=== PATIENT | female | born 1960 | race Caucasian/White ===

== ENCOUNTER 2018-11-22 11:34 | Emergency (ER) | payer SELFPAY ==
[2018-11-22 12:00] VITALS: BP 133/63
--- NOTE | 2018-11-22 12:09 | UC ---
Abdominal Pain Female HPI - HPI Summary HPI Summary: Patient presents to urgent care. Patient states she was directed here by her primary care for an ultrasound. Patient states Oneil 12 days ago was sitting in a chair had a forceful cough and felt sudden pain in her left lower abdomen. Patient states a few days later she was picking up a 75 pound propane tank when she felt sudden sharp pain. Patient states since this time she's had progressive discomfort in her left lower abdomen. Patient denies nausea vomiting. Patient states her stools have been a smaller caliber. Patient was taking Motrin and Aleve but this causes some nausea so she stopped taking it. Patient states she's been having fevers with a MAXIMUM TEMPERATURE of 102.4 last night. No fevers. No antipyretics today. Patient states she continues to have discomfort so her doctor, who is not the office, recommended she come here for an ultrasound to evaluate for hernia. Patient denies any dysuria or hematuria. No back pain. Patient is not on anticoagulation. Patient's medications reviewed this visit - History of Current Complaint Chief Complaint: UCAbdominalPain Stated Complaint: ABD PAIN Time Seen by Provider: 11/22/18 11:51 Hx Obtained From: Patient Hx Last Menstrual Period: menapause ?: No Onset/Duration: Gradual Onset Severity Initially: Moderate Severity Currently: Moderate Pain Intensity: 8 Pain Scale Used: 0-10 Numeric Location: Discrete At: LLQ Radiates: No Character: Other - pressure Aggravating Factor(s): Movement, Deep Breaths, Other: - palpation Alleviating Factor(s): Other: - motrin Associated Signs and Symptoms: Positive: Other: - smaller caliber stools. Negative: Vaginal Discharge, Nausea, Vomiting Allergies/Adverse Reactions: Allergies Allergy/AdvReac Type Severity Reaction Status Date / Time ceftriaxone [From Rocephin] Allergy Hives Verified 11/22/18 11:41 Home Medications: Home Medications Cyclobenzaprine TAB* [Flexeril 10 MG TAB*] 5 mg PO TID 11/22/18 [History Confirmed 11/22/18] Ibuprofen [Ibu] 400 mg PO Q4HR PRN 11/22/18 [History Confirmed 11/22/18] Oxycodone HCl 5 mg PO SEE INSTRUCTIONS 11/22/18 [History Confirmed 11/22/18] PMH/Surg Hx/FS Hx/Imm Hx Previously Healthy: Yes - Surgical History Surgical History: Yes Surgery Procedure, Year, and Place: c sections x 2. right arm repair - Family History Known Family History: Positive: Non-Contributory - Social History Occupation: Unemployed Alcohol Use: None Substance Use Type: None Smoking Status (MU): Light Every Day Tobacco Smoker Review of Systems All Other Systems Reviewed And Are Negative: Yes Constitutional: Positive: Fever Skin: Positive: Bruising - LLQ, Other Physical Exam - Summary Physical Exam Summary: Vital Signs Reviewed: Yes A+Ox3, no distress Eyes: Conjunctiva Clear, JUSTINA. EOM intact and full ENT: Hearing grossly normal TM x 2 clear, mmoist, uvula midline, no exudate, no erythema Neck: Positive: Supple Respiratory: Positive: No respiratory distress, No accessory muscle use + CTA throughout no w/r Cardiovascular: RRR nl s1, s2 no m/r CBT <2 sec abd soft + BS Left lower quadrat to inguinal ligament extending to upper left jerry with firmeness, tenderness, warmth, mild ecchymosis. No rebound, fluctuance abd otherwise soft Musculoskeletal Exam: LUO x 4 without difficulty Strength Intact, ROM Intact Neurological: Positive: Alert, + sensation throughout Psychological: Positive: Normal Response To Family Skin: Positive: no rash, no ecchymosis Triage Information Reviewed: Yes Vital Signs: Initial Vital Signs Temp 99.3 F 11/22/18 11:46 Pulse 95 11/22/18 11:46 Resp 18 11/22/18 11:46 BP 133/63 11/22/18 11:46 Pulse Ox 98 11/22/18 11:46 Diagnostics - Radiology No standard instances Radiology Interpretation Completed By: Radiologist - Patient Name: LENA ZURITA Medical Record#: [id number] Ordering Physician: Sameera Heck MD Acct.#: [id number] : 1960 Age: 58 Sex: F Location: [facility] Exam Date: 11/22/18 1216 ADM Status: REG ER Order Information: US ABDOMEN LIMITED Accession Number: [id number] CPT: 40960 HISTORY: Left lower quadrant pain COMPARISONS : None TECHNIQUE: Multiple transverse and longitudinal ultrasound images were obtained of the left lower quadrant and left inguinal region. FINDINGS: Corresponding to the patient's site of tenderness overlying the left inguinal region is a heterogeneous echogenic and avascular collection measuring up to 7.8 x 5.3 x 6.1 cm. There appears to be movement within this collection characteristic of peristalsis. IMPRESSION: SONOGRAPHIC FINDINGS ARE CONCERNING FOR INCARCERATED HERNIA CONTAINING A LOOP OF BOWEL. RECOMMEND CONTRAST-ENHANCED CT OF THE ABDOMEN AND PELVIS, PREFERABLY WITH DILUTE GASTROGRAFIN ORAL CONTRAST AND/OR RECTAL CONTRAST. <Electronically signed by Hollis Reynoso MD in OV> 11/22/18 1310 Dictated By: Hollis Reynoso MD Dictated Date/Time: 11/22/18 1310 Transcribed Date/Time: 11/22/18 1305 Copy to: CC:Sameera Heck MD; Elena Nick RE RECORDING MIXER Imaging - [facility] [address] [place] [address] ph ([phone]) ph ([phone]) ph ([phone]) This report is only to be considered final once signed by the Provider(s) as displayed in the "<Electronically Signed by >" field (s). Absence of a signature indicates the report is in a draft status and still needs to be finalized. In the event this document was created by someone other than the signing Provider, the individual initiating the document will be listed in the "Entered by:" or "Dictated by:" rick. 1 of 1 Re-Evaluation - Re-Evaluation First Eval Comment: reviewed CT with pt. will send to ED for further evaluatioin and treatment. NPO. directly to ED. d/w Dr. Lamar - aware pt coming Abd Pain Female Course/Dx - Course Course Of Treatment: Patient with start of pain in her left lower quadrant Oneil 12 days ago after coughing. Patient states pain increased after lifting a 75 pound propane tank. Patient with progressive pain reports intermittent fevers. Patient without any other symptoms to suggest source of infection. Patient states she was taking Motrin causes stomach upset so she stopped. On exam patient with firmness with slight ecchymosis to her left lower quadrant inguinal ligament extending to her left mons. No fluctuance. Discussed with patient at length. Will check ultrasound. If not a clear diagnosis we'll likely send the ED for further evaluation included lab work as well as imaging perhaps a CT with contrast. Patient states understanding agreement with plan. Patient unable to give a urine at the time of about.Pt unable to give urine specimen at time of evaluation. - Differential Dx/Diagnosis Provider Diagnosis: Inguinal hernia - Physician Notification/Consults Discussed Care of Patient With: James Lamar Discharge - Sign-Out/Discharge Documenting (check all that apply): Patient Departure All imaging exams completed and their final reports reviewed: Yes - Discharge Plan Condition: Stable Disposition: HOME-RECOMMEND TO ED Patient Education Materials: Inguinal Hernia (ED) Referrals: Elena Nick NP [Primary Care Provider] - Additional Instructions: - Go directly to the emergency department for further evaluation and treatment- They are expecting you. Do NOT eat or drink anything prior to your evaluation at the emergency department - Billing Disposition and Condition Condition: STABLE Disposition: Home-Recommend to ED
== END 2018-11-22 13:27 | disposition home health service (06) ==
LOC: UCEAST 11:34
DX: K40.90 Unilateral inguinal hernia, without obstruction or gangrene, not specified as recurrent (principal); Z88.1 Allergy status to other antibiotic agents; F17.200 Nicotine dependence, unspecified, uncomplicated
CPT/HCPCS: 76705; 99201; G0463

== ENCOUNTER 2018-11-22 13:52 | Inpatient (IN) | payer MEDICAID ==
[2018-11-22] MEDS ORDERED: Morphine VIAL* 4 MG/ML VIAL (1 ml vial) IV ONE (14:00)
[2018-11-22] MEDS ORDERED: Ondansetron INJ* 2 MG/ML VIAL IV ONE (14:01)
--- NOTE | 2018-11-22 14:17 | ED ---
Abdominal Pain/Female - HPI Summary HPI Summary: This pt is a 58 y/o female presenting to [facility] referred by [facility] for possible incarcerated hernia. 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 Suddenly she felt a sharp pain in her left lower abdomen that last for 15 seconds, but even since she has had dull constant pain in the same area. Pt states a few days later she filled 2 propane tanks and as she was picking up the 75 pound propane tank she felt sudden sharp pain worse than before. Pt had been trying Advil and Aleve but states it was upsetting her stomach. She saw her PCP 4 days ago and was placed on Flexeril without relief. Pt started to take her 's oxycodone 0.5 mg, tabs which she breaks into quarters. Pt reports decreased PO intake, she has had thin stools with mucous and gas, as well as a fever. Last night her max temperature was 102F and today it was 101F. Patient describes left lower abd pain that is constant and it is aggravated with movement, sneezing, cough, bending down. At times she notes her pain radiates down to the left side of pelvis. Denies nausea and vomiting. Pt has not felt the hernia move around and it is "rock solid" now. Pt had an ultrasound of the abdomen at Urgent Care today. The last time she ate was last night, vegetable soup. The last time she drank was this morning, sips of water. Zohra hx of diverticulitis. Denies taking any medications. No anticoagulants. PMHx: c-sections x2, titanium plate in arm. Pt is as current smoker, less than 8 cigarettes a day. - History of Current Complaint Chief Complaint: EDAbdPain Stated Complaint: INGUINAL HERNIA Time Seen by Provider: 11/22/18 13:58 Hx Obtained From: Patient Hx Last Menstrual Period: menapause Onset/Duration: Lasting Days, Still Present Timing: Days Severity Currently: Severe Pain Intensity: 8 Pain Scale Used: 0-10 Numeric Location: Discrete At: LLQ Radiates: No Character: Sharp, Dull - constant Aggravating Factor(s): Movement, Other: - coughing, sneezing, bending down, Alleviating Factor(s): Nothing Associated Signs and Symptoms: Positive: Fever, Other: - POS: thin stools with mucous. Negative: Constipation, Nausea, Vomiting, Diarrhea Allergies/Adverse Reactions: Allergies Allergy/AdvReac Type Severity Reaction Status Date / Time ceftriaxone [From Rocephin] Allergy Hives Verified 11/22/18 14:22 PMH/Surg Hx/FS Hx/Imm Hx Endocrine/Hematology History: Denies: Hx Diabetes Cardiovascular History: Denies: Hx Hypertension - Cancer History Cancer Type, Location and Year: denies - Surgical History Surgery Procedure, Year, and Place: c sections x 2. right arm repair Infectious Disease History: No Infectious Disease History: Denies: Traveled Outside the [place] in Last 30 Days - Family History Known Family History: Positive: Cardiac Disease - mother with [place] and CHF Family History: father with stomach CA - Social History Alcohol Use: None Substance Use Type: Reports: None Smoking Status (MU): Light Every Day Tobacco Smoker Review of Systems Positive: Fever. Negative: Chills Negative: Erythema Negative: Sore Throat Negative: Chest Pain Negative: Shortness Of Breath, Cough Gastrointestinal: Other - POS: thin stools with mucous Positive: Abdominal Pain. Negative: Vomiting, Nausea Negative: dysuria, hematuria Negative: Myalgia, Edema Negative: Rash Neurological: Other - NEG: dizziness All Other Systems Reviewed And Are Negative: Yes Physical Exam - Summary Physical Exam Summary: Constitutional: Well-developed, Well-nourished, Alert. (-) Distressed Skin: Warm, Dry HENT: Normocephalic; Atraumatic Eyes: Conjunctiva normal Neck: Musculoskeletal ROM normal neck. (-) JVD, (-) Stridor, (-) Tracheal deviation Cardio: Rhythm regular, rate normal, Heart sounds normal; Intact distal pulses; The pedal pulses are 2+ and symmetric. Radial pulses are 2+ and symmetric. (-) Murmur Pulmonary/Chest wall: Effort normal. (-) Respiratory distress, (-) Wheezes, (-) Rales Abd: Soft, hot left lower quadrant down to left inguinal mass, which is firm, (- ) Distension, (-) Guarding, (-) Rebound Musculoskeletal: (-) Edema Lymph: (-) Cervical adenopathy Neuro: Alert, Oriented x3 Psych: Mood and affect Normal Triage Information Reviewed: Yes Vital Signs On Initial Exam: Initial Vitals Temp Pulse Resp BP Pulse Ox 99 F 109 16 151/80 98 11/22/18 13:54 11/22/18 13:54 11/22/18 13:54 11/22/18 13:54 11/22/18 13:54 Vital Signs Reviewed: Yes Procedures - Procedure Summary Procedure Summary: Hernia Reduction Procedure Note Indication was incarcerated left angle hernia. The pt was placed in Trendelenburg position. We applied ice pack for 30 minutes. Pt received IV morphine. I applied gentle steady pressure in attempt to reduce the hernia in 10 -15 minutes. Reduction was unsuccessful. Limited by the size of the bowel that is outside of the abdominal wall defect. Diagnostics - Vital Signs Vital Signs Temp Pulse Resp BP Pulse Ox 11/22/18 13:54 99 F 109 16 151/80 98 - Laboratory Result Diagrams: 11/22/18 14:20 11/22/18 14:21 Lab Statement: Any lab studies that have been ordered have been reviewed, and results considered in the medical decision making process. - CT Abdomen/pelvis CT CT Interpretation Completed By: Radiologist Summary of CT Findings: IMPRESSION: A fluid collection in the left inguinal region measuring 12.8 x 6.3 x 5.3 cm. This is consistent with an abscess without evidence of hernia. Dr. Lamar has reviewed this report. Abdomen/Pelvis CT without contrast (Urgent Care) CT Interpretation Completed By: Radiologist Summary of CT Findings: IMPRESSION: SONOGRAPHIC FINDINGS ARE CONCERNING FOR INCARCERATED HERNIA CONTAINING A LOOP OF BOWEL. RECOMMEND CONTRAST-ENHANCED CT OF THE ABDOMEN AND PELVIS, PREFERABLY WITH DILUTE GASTROGRAFIN ORAL CONTRAST AND /OR RECTAL CONTRAST. Dr. Lamar has reviewed this report. - Ultrasound No standard instances Ultrasound Interpretation Completed By: Radiologist Summary of Ultrasound Findings: Abdomen US IMPRESSION: IMPRESSION: SONOGRAPHIC FINDINGS ARE CONCERNING FOR INCARCERATED HERNIA CONTAINING A LOOP OF BOWEL. RECOMMEND CONTRAST-ENHANCED CT OF THE ABDOMEN AND PELVIS, PREFERABLY WITH DILUTE GASTROGRAFIN ORAL CONTRAST AND/OR RECTAL CONTRAST. Dr. Lamar has reviewed this report. Re-Evaluation - Re-Evaluation First Eval Re-Evaluation Time: 15:24 Comment: Attempted hernia reduction. Please see procedure note. Unsuccessful reduction. Abdominal Pain Fem Course/Dx - Course Course Of Treatment: Pt is a 58 y/o female who presents to the ED referred by SHAK[facility] for possible incarcerated hernia. 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 Suddenly she felt a sharp pain in her left lower abdomen that last for 15 seconds, but even since she has had dull constant pain in the same area. Pt states a few days later she filled 2 propane tanks and as she was picking up the 75 pound propane tank she felt sudden sharp pain worse than before. Last night her max temperature was 102F and today it was 101F. Patient describes left lower abd pain that is constant and it is aggravated with movement, sneezing, cough, bending down. At times she notes her pain radiates down to the left side of pelvis. Pt had an abdomen US at Urgent Care today. Abdomen US shows SONOGRAPHIC FINDINGS ARE CONCERNING FOR INCARCERATED HERNIA CONTAINING A LOOP OF BOWEL. RECOMMEND CONTRAST-ENHANCED CT OF THE ABDOMEN AND PELVIS, PREFERABLY WITH DILUTE GASTROGRAFIN ORAL CONTRAST AND/OR RECTAL CONTRAST. I discussed the case with Dr. Braswell, surgeon, who was notified for a possible incarcerated hernia containing a loop of bowel. She reports to pursue to CT imaging and labs and attempt to reduce it. We will follow this. Labs show WBC of 22.8, platelet count of 660, CRP of 299.68, lipase <10. In the ED course the pt was given IV fluids, zofran, and morphine. Hernia reduction was attempted but not successful. Please see procedure note. Dr. Braswell wants the pt to go to CT scan without all the oral contrast finished. Abdomen/ Pelvis CT shows a fluid collection in the left inguinal region measuring 12.8 x 6.3 x 5.3 cm. This is consistent with an abscess without evidence of hernia. I discussed pt care with surgery who will admit the pt for abdominal abscess. - Diagnoses Provider Diagnoses: Abdominal abscess - Provider Notifications Discussed Care Of Patient With: Zohra Braswell Time Discussed With Above Provider: 14:23 Instructed by Provider To: Other - I discussed the case with Dr. Braswell, surgeon, who was notified for an incarcerated hernia containing a loop of bowel. She reports to pursue to CT imaging and labs and attempt to reduce it. [15:50] Dr. Braswell wants the pt to go to CT scan without all the oral contrast finished. Discharge - Sign-Out/Discharge Documenting (check all that apply): Patient Departure - Admit to surgery - Discharge Plan Condition: Stable Disposition: ADMITTED TO [facility] Referrals: Jamey Barrow MD [Primary Care Provider] - - Attestation Statements Document Initiated by Scribe: Yes Documenting Scribe: Marni Hernandez Provider For Whom Scribe is Documenting (Include Credential): James Lamar MD Scribe Attestation: Marni Cao, scribed for James Lamar MD on 11/22/18 at 1700. Status of Scribe Document: Ready
[2018-11-22] MEDS ORDERED: NS 0.9% 1000 ML** 1,000 ML IV ONE ×2 (14:25→15:56)
[2018-11-22 14:41] LABS: ABS Basophils 0.2 10^3/ul (0-0.2); ABS Eosinophils 0 10^3/ul (0-0.6); ABS Lymphocytes 1.4 10^3/ul (1.0-4.8); ABS Monocytes 1.5 10^3/ul (0-0.8); ABS Neutrophils 19.7 10^3/ul (1.5-7.7); ABS Nucleated RBC 0 10^3/ul; Eosinophil % 0 %; Hematocrit 35 % (35-47); Mean Corpuscular HGB Conc 34 g/dl (31-36); Mean Corpuscular Hemoglobin 30 pg (27-31); Mean Corpuscular Volume 88 fL (80-97); Nucleated Red Blood Cells % 0; Platelet Count 660 10^3/ul (150-450); Red Blood Count 3.98 10^6/ul (4.00-5.40); Red Cell Distribution Width 13 % (10.5-15); White Blood Count 22.8 10^3/ul (3.5-10.8)
[2018-11-22 14:54] LABS: ALT 43 U/L (7-52); AST 15 U/L (13-39); Albumin 3.6 g/dL (3.2-5.2); Albumin/Globulin Ratio 0.9 (1-3); Alkaline Phosphatase 168 U/L (34-104); Anion Gap 10 mmol/L (2-11); Blood Urea Nitrogen 9 mg/dL (6-24); C Reactive Protein 299.68 mg/L (<8.01); CO2 Carbon Dioxide 28 mmol/L (22-32); Calcium 9.1 mg/dL (8.6-10.3); Chloride 97 mmol/L (101-111); EGFR African American 142.4 (>60); EGFR Non-African American 117.7 (>60); Globulin 3.9 g/dL (2-4); Glucose 117 mg/dL (70-100); Potassium 3.6 mmol/L (3.5-5.0); Sodium 135 mmol/L (135-145); Total Protein 7.5 g/dL (6.4-8.9)
[2018-11-22] MEDS ORDERED: Vancomycin(*) 1,250 MG in NS 0.9% 250 ML* 250 ML IVPB ONE (15:55)
[2018-11-22] MEDS ORDERED: Aztreonam (*) 2 GM in NS 0.9% 100 ML* 100 ML IVPB ONE (15:55)
[2018-11-22] MEDS ORDERED: metroNIDAZOLE IV 500 MG/100ML* 500 MG/100 ML BAG IVPB ONE (15:55)
[2018-11-22] MEDS ORDERED: Iohexol 300* (CONTRAST) 10 ML SDV IV ONE (16:00)
[2018-11-22] MEDS ORDERED: NS 0.9% 250 ML* 250 ML ONE (16:37)
--- NOTE | 2018-11-22 17:04 | HP ---
CC: Dr. Jamey Barrow, [facility] * DATE OF ADMISSION: 11/22/2018. The patient was seen initially in the ED. ATTENDING SURGEON: Dr. Zohra Braswell * (TOM Odonnell dictating). CHIEF COMPLAINT: Abdominal pain. HISTORY OF PRESENT ILLNESS: This is a 58-year-old, generally healthy female who on November 11 stated that she was slouched in her recliner when she started to cough and lifted her feet and abdomen at the same time. She felt a sudden sharp pain in her left lower abdomen that lasted for a short period of time and the rest of the day, though she states she awoke the next morning pain free. Later the next day, she was picking up heavy propane tanks and felt a sudden sharp pain in the same area as before. That pain has been present to some degree since then with minimal relief from Advil, Aleve, or Oxycodone. She states that she has had some upset stomach that she attributed to the NSAID' s. She was seen by her PCP four days ago and placed on Flexeril without relief. She reports decreased oral intake, but denies nausea or vomiting. Bowel movements have been less as well in the past few days. She also reports a low grade fever throughout the onset of the present illness, but with increase in temperature last night and this morning as high as 102. She states that the left lower abdominal pain is constant and aggravated with movements, sneezing, cough, or bending. She states that it sometimes radiates to the left side of the pelvis. She again denies nausea or vomiting. She presented to Urgent Care earlier today at which time an ultrasound was performed showing a heterogeneous echogenic and avascular collection measuring 7.8 x 5.3 x 6.1 cm. There was also apparent peristalsis within the mass and recommendation was made for CT scan with oral contrast, which the patient is completing now. She last ate vegetable soup last night and other than sips of water and oral contrast has been NPO today. PAST MEDICAL HISTORY: Unremarkable for any chronic or active medical problems. PAST SURGICAL HISTORY: Her only surgeries are C-sections times two via low transverse incision and ORIF of right humeral fracture. CURRENT MEDICATIONS: None, other than described in the HPI. DRUG ALLERGIES: CEFTRIAXONE (HIVES). FAMILY HISTORY: Positive for cardiac disease in her mother and also positive for stomach cancer in her father. SOCIAL HISTORY: The patient denies alcohol use and smokes less than eight cigarettes per day. REVIEW OF SYSTEMS: Negative other than per the HPI. She denies any symptoms. PHYSICAL EXAMINATION In portion from the ED provider and portion my own exam. GENERAL: Well-developed, well-nourished, alert, in no acute distress. SKIN: Warm and dry. See also below for abdomen. VITAL SIGNS: Temperature 99, blood pressure 151/80, pulse 109, respirations 16 , room air saturation 98 percent. HEENT: Normocephalic. Conjunctivae normal. NECK: Normal. LUNGS: Clear to auscultation. No wheezes or rales. HEART: Regular rate and rhythm. No murmur noted. ABDOMEN: Soft with an area of mild erythema just superior to the left inguinal area with a visible mass which is palpable, firm, and moderate to exquisitely tender and nonreducible. EXTREMITIES: Unremarkable. No edema. NEUROLOGIC: Grossly intact. LABORATORY DATA/DIAGNOSTIC STUDIES: Notable for white blood cell count of 22, 800 with left shift, hemoglobin 12, platelet count 660,000; CRP is elevated at 300, lactic acid is normal at 0.9, the remaining chemistries are essentially normal. Ultrasound as noted above. CT scan pending. IMPRESSION: Incarcerated hernia (may be inguinal versus ventral incisional), nonreducible. PLAN: Case was discussed with Dr. Braswell and plan will be made for operative intervention after Dr. Braswell has seen the patient to confirm exam and plan. ADDENDUM: Please see follow up progress note, CT scan confirmed abdominal wall abscess and not a hernia, therefore patient was taken to IR for drainage. TOM ODONNELL [id number]/[facility] #: [id number] [facility] HOSPITALJj
[2018-11-22] MEDS ORDERED: Rocuronium* 10 MG/ML VIAL ONE (17:12)
[2018-11-22] MEDS ORDERED: fentaNYL* 50 MCG/ML 5 ML VIAL (250 MCG VIAL) ONE (17:12)
[2018-11-22] MEDS ORDERED: Midazolam* 1 MG/ML 5 ML VIAL (5 MG) ONE (17:12)
[2018-11-22] MEDS ORDERED: Propofol* 10 MG/ML 20 ML BTL ONE (17:13)
[2018-11-22] MEDS ORDERED: EPHEDrine (Pressors)* 50 MG/ML VIAL ONE (17:13)
[2018-11-22] MEDS ORDERED: Ketorolac INJ* 30 MG/ML 1 ML VIAL ONE (17:13)
--- NOTE | 2018-11-22 18:38 | ADMNOTE ---
Subjective Date of Service: 11/22/18 Interval History: HPI: This is a 58 yo F with no sig PMH who is presenting with 10 days of L inguinal pain, and 2 days of fevers and chills. She Social Hx: Scant EtOH Smokes 8 cigarettes a day No illicit use Review of Systems - Measurements Intake and Output: Intake and Output Last 24 Hours 11/20/18 11/21/18 11/22/18 11/23/18 06:59 06:59 06:59 06:59 Intake Total 1100 Balance 1100 Weight 162 lb Intake: IV Fluids 1100 Objective Active Medications: Acetaminophen (Tylenol Tab*) 650 mg PO Q4H PRN PRN Reason: FEVER/PAIN Heparin Sodium (Porcine) (Heparin Vial(*)) 5,000 units SUBCUT Q8HR CLARKE Ondansetron HCl (Zofran Inj*) 4 mg IV Q8H PRN PRN Reason: NAUSEA Vital Signs - 8 hr 11/22/18 11/22/18 11/22/18 13:54 14:05 14:06 Temperature 99 F Pulse Rate 109 102 103 Respiratory 16 Rate Blood Pressure 151/80 169/76 (mmHg) O2 Sat by Pulse 98 96 98 Oximetry 11/22/18 11/22/18 11/22/18 14:35 14:59 15:00 Temperature Pulse Rate 96 Respiratory 15 Rate Blood Pressure 131/74 (mmHg) O2 Sat by Pulse 99 Oximetry 11/22/18 11/22/18 11/22/18 15:05 15:35 16:00 Temperature Pulse Rate 93 94 92 Respiratory Rate Blood Pressure 124/77 133/75 (mmHg) O2 Sat by Pulse 95 97 100 Oximetry 11/22/18 11/22/18 11/22/18 16:05 16:35 17:04 Temperature 98.9 F Pulse Rate 93 96 76 Respiratory 15 Rate Blood Pressure 148/78 128/78 128/68 (mmHg) O2 Sat by Pulse 99 92 98 Oximetry Result Diagrams: 11/22/18 14:20 11/22/18 14:21 Assess/Plan/Problems-Billing Assessment:
--- NOTE | 2018-11-22 18:55 | CONSULT ---
Subjective Date of Service: 11/22/18 Interval History: HD#1 HPI 58 yo F with no sig PMH who presented with 10 days of L inguinal pain and found to have 13cm x 6 cm x 6cm abdominal wall collection, with no noted bowel involvement. She was initially evaluated by surgery, who wrote an H/P but on further discussion with surgical attending the plan changed to have interventional radiology look at the case and thus she was admitted to the medical service. She denies bladder or bowel issues. She noted that about 10 days ago she was sitting straight up in bed and lifted her legs up at the same time "like you when you are doing pilates" and felt a deep burning pain on her L lower abdomen. Since then she has had growing pain and noticed the area to become red and hot, she started having chills and tried to present to primary care, though couldn't get appt, went to and was referred to ED. In the emergency room she was T Max 99, HR sinus 90's. BP 130s/70s, satting well on RA. Her labs are notable for a leukocytosis to 22, thrombocytosis to 600 , unremarkable BMP, flat lipase, and elevated CRP. She rec'd Flagyl, was ordered for Aztreonam but did not appear to rec it. Also order for pain control , toradol, dose of Fentanyl, with good effect She was admitted to the surgical short stay until with medicine as the attendings of records. 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 Scant ETOH, Smokes 8 cig per day, denies illicit Allergies: As above Code: Full Review of Systems - Measurements Intake and Output: Intake and Output Last 24 Hours 11/20/18 11/21/18 11/22/18 11/23/18 06:59 06:59 06:59 06:59 Intake Total 1100 Balance 1100 Weight 162 lb Intake: IV Fluids 1100 - Review of Systems Constitutional Symptoms: Positive: Fever Dermatology: Positive: Normal, Skin Lumps HEENT: Positive: Normal Eyes: Positive: Normal Negative: Change in Vision, Double Vision, Eye Pain, Glaucoma, Cataract, Contacts or Glasses, Other Thyroid: Positive: Normal Negative: Goiter, Thyroid Nodule, Cold Intolerance, Heat Intolerance, Sweatiness, Tremor, Frequent Defecation, Constipation, Palpitations, Primary Hypothyroidism, Primary Hyperthyroidism, Weight Loss, Weight Gain, Change in Skin/Hair, Change in Menstruation, Radiation Exposure, Other Pulmonary: Positive: Normal Negative: Cough, Sputum, Hemoptysis, Wheezing, Respiratory Distress, Shortness of Breath, COPD, Asthma, Exercise Intolerance, Home Oxygen, Other Cardiology: Positive: Normal Negative: Chest Pain, Shortness of Breath, Palpitations, Swelling of Ankles, Peripheral Vascular Dis, Edema, Faintness, Syncope, Claudication, Proximal NocturnalDyspnea, Orthopnoea, Other Gastroenterology: Positive: Abdominal Pain Negative: Normal, Nausea, Vomiting, Anorexia, Indigestion, Difficulty Swallowing, Heartburn, Constipation, Diarrhea, Blood in Stools, Change in Bowel Habits, Haematemesis, Melena, Other Genital - Urinary: Positive: Normal Genitourinay - Female: Positive: Menses Normal, Menopause, Other. Negative: Vaginal Discharge, Dysmenorrhea Musculoskeletal: Negative: Joint Pain, Joint Stiffness, Arthritis, Osteoporosis, Low Back Pain , Sciatica, Joint Deformities, Kyphoscoliosis, Other Endocrinology: Positive: Normal Hematologic/Lymphatic: Negative: Anemia, Easy Brusing, Hx Leukemia, Hx Lymphoma, Use of Anticoagulant, Use of Antiplatelet Drugs, Other Neurology: Positive: Normal Negative: Headache, Change in Vision Psychiatry: Positive: Normal Allergic/Immunologic: Negative: Hx Anaphylaxis, Hx Angioedema, Hx Environmental, Hx Seasonal, Athsma, Hx HIV, Immunocompromise, Swollen Glands LymphNodes, Other Objective Active Medications: Acetaminophen (Tylenol Tab*) 650 mg PO Q4H PRN PRN Reason: FEVER/PAIN Heparin Sodium (Porcine) (Heparin Vial(*)) 5,000 units SUBCUT Q8HR CLARKE Ciprofloxacin/Dextrose (Cipro 400 Mg Ivpremix(*)) 400 mg in 200 mls @ 200 mls/ hr IVPB Q12H CLARKE Metronidazole/Sodium Chloride (Flagyl 500 Mg Ivpb*) 500 mg in 100 mls @ 100 mls /hr IVPB Q8H CLARKE Ondansetron HCl (Zofran Inj*) 4 mg IV Q8H PRN PRN Reason: NAUSEA Vital Signs - 8 hr 11/22/18 11/22/18 11/22/18 13:54 14:05 14:06 Temperature 99 F Pulse Rate 109 102 103 Respiratory 16 Rate Blood Pressure 151/80 169/76 (mmHg) O2 Sat by Pulse 98 96 98 Oximetry 11/22/18 11/22/18 11/22/18 14:35 14:59 15:00 Temperature Pulse Rate 96 Respiratory 15 Rate Blood Pressure 131/74 (mmHg) O2 Sat by Pulse 99 Oximetry 11/22/18 11/22/18 11/22/18 15:05 15:35 16:00 Temperature Pulse Rate 93 94 92 Respiratory Rate Blood Pressure 124/77 133/75 (mmHg) O2 Sat by Pulse 95 97 100 Oximetry 11/22/18 11/22/18 11/22/18 16:05 16:35 17:04 Temperature 98.9 F Pulse Rate 93 96 76 Respiratory 15 Rate Blood Pressure 148/78 128/78 128/68 (mmHg) O2 Sat by Pulse 99 92 98 Oximetry Oxygen Devices in Use Now: None Appearance: Very pleasant woman in NAD Eyes: No Scleral Icterus, PERRLA Ears/Nose/Mouth/Throat: NL Teeth, Lips, Gums, Mucous Membranes Moist Neck: NL Appearance and Movements; NL JVP, Trachea Midline, No Thyroid Enlargement, Masses Respiratory: Symmetrical Chest Expansion and Respiratory Effort, Clear to Auscultation Cardiovascular: NL Sounds; No Murmurs; No JVD, RRR Abdominal: NL Sounds; No Tenderness; No Distention, - - L inguinal area with warm to touch ~12 cm area of indurated tender skin and mild 4cm bulge Lymphatic: No Cervical Adenopathy Extremities: No Edema Skin: No Rash or Ulcers Neurological: Alert and Oriented x 3 Result Diagrams: 11/22/18 14:20 11/22/18 14:21 Diagnostic Imagin11/22/18: CT Abdomen and Pelvis: A fluid collection in the L inguinal region 13cm x 6.2cm x 6 cm Assessment/Plan - Billing Assessment: 58 yo F with no sig PMH who presents with L inguinal abdominal wall abscess with etiology most concerning for translocation of gut augustin across a non incarcerated herniated bowel. Her hx is c/w acute event that predisposed her , she has no overlying skin changes, and her abscess is noted to have flocculent air. She is admitted to the medical service to see if abscess is amenable to IR intervention. Plan by problem: 1) Abdominal wall abscess (low risk): She has a CTX allergy, will cover her on cipro/flagyl until collection can be drained and then continue PO cipro flagyl for total of 14 days --I do have occult concern for underlying non incarcerated hernia, though no bowel is seen in CT Scan --Pain control Tylenol/Tramadol/Ketorolac PRN --Zofran PRN for nausea --IVF NS 75cc per hour for addnl L 2) Leukocytosis and thrombocytopenia: All reactive, continue narrow coverage as above --Pending blood cx and UA, lung CTABL FEN: NPO at midnight, otherwise unrestricted DVT PPX: SQH Full Code Formal progress note to follow tomorrow
[2018-11-22] MEDS ORDERED: metroNIDAZOLE IV 500 MG/100ML* 500 MG/100 ML BAG IVPB SCH (19:00)
[2018-11-22] MEDS ORDERED: fentaNYL* 50 MCG/ML 2 ML VIAL (100 MCG VIAL) ONE (19:19)
[2018-11-22] MEDS ORDERED: NS 0.9% 1000 ML** 1,000 ML IV SCH (19:30)
[2018-11-22] MEDS: traMADol TAB* 50 MG PO PRN (22:26)
[2018-11-22] MEDS: Heparin VIAL(*) 5000 UNITS/ML VIAL (FIVE THOUSAND) SUBCUT SCH (22:27)
[2018-11-22] MEDS: Ciprofloxacin 400MG IVPREMIX(* 400 MG/200 ML BAG IVPB SCH (22:31)
[2018-11-22] MEDS: Acetaminophen TAB* 325 MG PO PRN (22:41)
[2018-11-22] MEDS ORDERED: NS 0.9% 500 ML* 500 ML IV ONE (22:48)
--- NOTE | 2018-11-22 22:56 | PN ---
SURGICAL PROGRESS NOTE: DATE OF SERVICE: 11/22/18 SERVICE: General surgery. HISTORY: Please see full dictated history and physical by Terrence Shah, but briefly, this patient is a 58-year-old female who has no significant past medical history, who says that approximately 12 days ago, she was sitting in a recliner, started to cough, lifted her feet and then felt a sudden sharp pain in her left lower abdomen. She was feeling better after that and then the next day, picked up some heavy propane tanks and felt sharp pain in the same area as before. The following days were characterized by increasing pain in the left lower abdominal area. She says that she also has been having fevers. She was seen by her primary care physician 4 days ago, who thought that she had probably pulled a muscle and placed her on Flexeril; however, she said that this did not improve her pain. She has not had any nausea or vomiting. She has had normal bowel movements until a few days when she says that it has become more mucous-like in appearance, but that she has had no diarrhea. She presented to the Urgent Care earlier today. An ultrasound was performed showing a heterogenous, echogenic, and avascular collection with possible peristalsis suggestive of a small bowel. She was sent to the emergency room where she had labs that showed her white count was 22. A CT scan was done with oral and IV contrast that showed a left lower abdominal wall abscess. I discussed the case with the radiologist, Dr. Howard and also Dr. Reynoso. There was questionable communication with the sigmoid colon that was also thick- walled. A repeat CT pelvis scan was done with rectal contrast that did not show any extravasation of contrast or any clear communication with superficial abdominal wall abscess cavity. Given the location of the abscess cavity on the fold of her lower abdominal wall, I discussed with the patient that one option to be to take her to the OR for incision and drainage or alternatively, she can attempt to have a percutaneous IR drainage done of the abscess collection with the hope that this can largely drain this abscess and that it can resolved with IV and oral antibiotics. The benefit of IR drainage would be to avoid a large and deep incision and the several month of wound care. However, I did tell her that with the IR drainage option, it is possible that this may not completely resolve the abscess and she may later on have to go for OR for an incision and drainage. She wished to undergo IR drainage and antibiotics, which will be done by Interventional Radiology. The patient should be admitted on the medical service for this procedure to be done as well as for monitoring and antibiotics. [id number]/CPS #: [id number] MTDD
[2018-11-23] MEDS: metroNIDAZOLE IV 500 MG/100ML* 500 MG/100 ML BAG IVPB SCH ×2 (00:32→09:00)
[2018-11-23] MEDS: Ketorolac INJ* 30 MG/ML 1 ML VIAL IV PUSH PRN ×3 (01:40→18:43)
[2018-11-23] MEDS ORDERED: Ciprofloxacin 400MG IVPREMIX(* 400 MG/200 ML BAG IVPB SCH (06:00)
[2018-11-23] MEDS: Heparin VIAL(*) 5000 UNITS/ML VIAL (FIVE THOUSAND) SUBCUT SCH ×3 (06:08→22:29)
[2018-11-23 07:40] LABS: Hematocrit 29 % (35-47); Hemoglobin 9.8 g/dl (12.0-16.0); Mean Corpuscular HGB Conc 33 g/dl (31-36); Mean Corpuscular Hemoglobin 29 pg (27-31); Mean Corpuscular Volume 89 fL (80-97); Platelet Count 490 10^3/ul (150-450); Red Blood Count 3.32 10^6/ul (4.00-5.40); Red Cell Distribution Width 13 % (10.5-15); White Blood Count 24.4 10^3/ul (3.5-10.8)
[2018-11-23 07:41] LABS: ABS Basophils 0.3 10^3/ul (0-0.2); ABS Eosinophils 0.1 10^3/ul (0-0.6); ABS Lymphocytes 1.2 10^3/ul (1.0-4.8); ABS Neutrophils 20.8 10^3/ul (1.5-7.7); ABS Nucleated RBC 0 10^3/ul; Eosinophil % 0.3 %; Lymphocyte % 5.1 %; Nucleated Red Blood Cells % 0
[2018-11-23] MEDS: Acetaminophen TAB* 325 MG PO PRN ×3 (07:46→22:29)
[2018-11-23 07:58] LABS: Calcium 8.2 mg/dL (8.6-10.3); EGFR African American 125.8 (>60); Potassium 3.9 mmol/L (3.5-5.0)
--- NOTE | 2018-11-23 08:11 | PN ---
Subjective Date of Service: 11/23/18 Interval History: HD#2 on 11/23 58 yo F with no sig PMH who presented with 10 days of L inguinal pain and found to have 13cm x 6 cm x 6cm abdominal wall collection, with no noted bowel involvement. She was initially evaluated by surgery, who wrote an H/P but on further discussion with surgical attending the plan changed to have interventional radiology look at the case and thus she was admitted to the medical service. Overnight did get an IR guided drain, 10 malay pigtail with aspiration, GNR on stain. VS T Max 102.5 at 11 and this morning. BP soft in the 90s-80s/50s, HR in the 70s , satting well on RA. Her labs are notable for a leukocytosis to 24, thrombocytosis to 600, unremarkable BMP, flat lipase, and elevated CRP. This morning she is still feeling unwell, started having diarrhea, feeling nauseous, no jose francisco abdominal pain but still tenderness at drain site. Did tolerate some food, would like a shower, no rash, no rigors, no MURPHY, no SOB or CP. Objective Active Medications: Acetaminophen (Tylenol Tab*) 650 mg PO Q4H PRN PRN Reason: FEVER/PAIN Last Admin: 11/23/18 07:46 Dose: 650 mg Heparin Sodium (Porcine) (Heparin Vial(*)) 5,000 units SUBCUT Q8HR CLARKE Last Admin: 11/23/18 06:08 Dose: 5,000 units Metronidazole/Sodium Chloride (Flagyl 500 Mg Ivpb*) 500 mg in 100 mls @ 100 mls /hr IVPB Q8H CLARKE Last Admin: 11/23/18 00:32 Dose: 100 mls/hr Ciprofloxacin/Dextrose (Cipro 400 Mg Ivpremix(*)) 400 mg in 200 mls @ 200 mls/ hr IVPB Q12H CLARKE Last Admin: 11/22/18 22:31 Dose: 200 mls/hr Sodium Chloride (Ns 0.9% 1000 Ml*) 1,000 mls @ 75 mls/hr IV PER [facility] Stop: 11/23/18 08:49 Last Admin: 11/22/18 21:21 Dose: 75 mls/hr Ketorolac Tromethamine (Toradol Inj*) 30 mg IV PUSH Q6H PRN PRN Reason: PAIN Last Admin: 11/23/18 07:46 Dose: 30 mg Ondansetron HCl (Zofran Inj*) 4 mg IV Q8H PRN PRN Reason: NAUSEA Tramadol HCl (Ultram*) 50 mg PO Q6H PRN PRN Reason: PAIN Last Admin: 11/22/18 22:26 Dose: 50 mg Vital Signs - 8 hr 11/23/18 11/23/18 11/23/18 00:33 03:42 03:53 Temperature 98.5 F Pulse Rate 76 Respiratory 16 17 Rate Blood Pressure 88/46 92/62 (mmHg) O2 Sat by Pulse 96 Oximetry 11/23/18 06:22 Temperature Pulse Rate Respiratory Rate Blood Pressure 110/54 (mmHg) O2 Sat by Pulse Oximetry Oxygen Devices in Use Now: None Appearance: Slightly fatigues woman in bed, mild persperation Eyes: No Scleral Icterus, PERRLA Ears/Nose/Mouth/Throat: NL Teeth, Lips, Gums, Mucous Membranes Moist Neck: NL Appearance and Movements; NL JVP, Trachea Midline Respiratory: Symmetrical Chest Expansion and Respiratory Effort, Clear to Auscultation Cardiovascular: NL Sounds; No Murmurs; No JVD, RRR Abdominal: NL Sounds; No Tenderness; No Distention, No Hepatosplenomegaly, - - L inguinal drain in place with no sig drainage, creamy gómez exudate in tube, TTP Lymphatic: No Cervical Adenopathy Extremities: No Edema Skin: No Rash or Ulcers Neurological: Alert and Oriented x 3 Result Diagrams: 11/23/18 07:25 11/23/18 07:25 Microbiology and Other Data: Microbiology 11/22/18 19:45 Gram Stain - Final Body Fluid - Abdominal Blood Cx 11/23: Pending UA: Ordered Diagnostic Imagin11/22/18: CT Abdomen and Pelvis: A fluid collection in the L inguinal region 13cm x 6.2cm x 6 cm Assess/Plan/Problems-Billing Assessment: 58 yo F with no sig PMH who presented with 10 days of L inguinal pain and found to have 13cm x 6 cm x 6cm abdominal wall collection, with no noted bowel involvement, though concern for diverticulitis given thickened sigmoid colon on scan. She is clinically not improving s/p drainage, will need to broaden IV abx and mclean culture on 11/23. - Patient Problems (1) Abdominal wall abscess Current Visit: Yes Status: Acute Code(s): L02.211 - CUTANEOUS ABSCESS OF ABDOMINAL WALL SNOMED Code(s): 93290171 Comment: -Cipro/Flagyl initially, will broaden to Zosyn given persitently febrile Day 2 on 11/23 -Awaiting culture, mclean culture stat 11/23 -s/p IR drainage, if persistently febrile will re ultrasound area to see if there is loculation, with diarrhea concern for diverticulitis -Surgery to follow (2) Diarrhea Current Visit: Yes Status: Acute Code(s): R19.7 - DIARRHEA, UNSPECIFIED SNOMED Code(s): 48128629 Comment: As per above, concern with abscess some communication, will watch closely over the next 24 hours -White count x 3 liquid stools, meets criteria for testing for C Diff -Continue Zosyn for now (3) SIRS (systemic inflammatory response syndrome) Current Visit: Yes Status: Acute Code(s): R65.10 - SIRS OF NON-INFECTIOUS ORIGIN W/O ACUTE ORGAN DYSFUNCTION SNOMED Code(s): 861112439 Comment: Fever and persitent WBC 11/23, mild hypotension. Check lactic acid now, will increase IVF to 125 cc per hour, bolus 500cc now x 1 -Tylenol -Zosyn (4) DVT prophylaxis Current Visit: Yes Status: Acute Code(s): RBJ1224 - SNOMED Code(s): 732688219 Comment: [facility] Status and Disposition: Inpatient
[2018-11-23] MEDS ORDERED: Piperacillin/Tazobac ADVAN(*) 3.375 GM in NS 0.9% 100 ML* 100 ML IVPB ONE (10:09)
[2018-11-23] MEDS: Ciprofloxacin 400MG IVPREMIX(* 400 MG/200 ML BAG IVPB SCH (10:14)
[2018-11-23] MEDS ORDERED: Zosyn per Pharmacy* NOTE FOLLOW UP SCH (11:00)
--- NOTE | 2018-11-23 11:21 | PN ---
Progress Note - Progress Note Date of Service: 11/23/18 Note: Surgery Progress Note S: Patient is s/p IR drainage of anterior abdominal wall abscess. She was febrile overnight and this morning to 102. She feels less pain in her left groin area and says that the pressure that was previously there is also much improved. She is tolerating a diet. She had diarrhea for the first time today. O: Vital Signs - 24 hr 11/22/18 11/22/18 11/22/18 13:54 14:05 14:06 Temperature 99 F Pulse Rate 109 102 103 Respiratory 16 Rate Blood Pressure 151/80 169/76 (mmHg) O2 Sat by Pulse 98 96 98 Oximetry 11/22/18 11/22/18 11/22/18 14:35 14:59 15:00 Temperature Pulse Rate 96 Respiratory 15 Rate Blood Pressure 131/74 (mmHg) O2 Sat by Pulse 99 Oximetry 11/22/18 11/22/18 11/22/18 15:05 15:35 16:00 Temperature Pulse Rate 93 94 92 Respiratory Rate Blood Pressure 124/77 133/75 (mmHg) O2 Sat by Pulse 95 97 100 Oximetry 11/22/18 11/22/18 11/22/18 16:05 16:35 17:04 Temperature 98.9 F Pulse Rate 93 96 76 Respiratory 15 Rate Blood Pressure 148/78 128/78 128/68 (mmHg) O2 Sat by Pulse 99 92 98 Oximetry 11/22/18 11/22/18 11/22/18 20:32 20:35 21:10 Temperature 102.0 F 100.4 F Pulse Rate 67 100 Respiratory 15 16 16 Rate Blood Pressure 121/69 138/54 (mmHg) O2 Sat by Pulse 98 100 Oximetry 11/22/18 11/22/18 11/22/18 22:26 22:38 22:43 Temperature 102.5 F Pulse Rate 101 Respiratory 16 16 Rate Blood Pressure 124/54 (mmHg) O2 Sat by Pulse 97 Oximetry 11/23/18 11/23/18 11/23/18 00:33 03:42 03:53 Temperature 98.5 F Pulse Rate 76 Respiratory 16 17 Rate Blood Pressure 88/46 92/62 (mmHg) O2 Sat by Pulse 96 Oximetry 11/23/18 11/23/18 11/23/18 06:22 07:49 08:00 Temperature 102.6 F Pulse Rate 86 Respiratory 16 16 Rate Blood Pressure 110/54 100/50 (mmHg) O2 Sat by Pulse 97 Oximetry Laboratory Results - last 24 hr 11/22/18 11/22/18 11/22/18 14:20 14:20 14:21 WBC 22.8 H RBC 3.98 L Hgb 12.0 Hct 35 MCV 88 MCH 30 MCHC 34 RDW 13 Plt Count 660 H MPV 7.0 L Neut % (Auto) 86.6 Lymph % (Auto) 6.0 [place] % (Auto) 6.5 Eos % (Auto) 0 Baso % (Auto) 0.9 Absolute Neuts (auto) 19.7 H Absolute Lymphs (auto) 1.4 Absolute Monos (auto) 1.5 H Absolute Eos (auto) 0 Absolute Basos (auto) 0.2 Absolute Nucleated RBC 0 Nucleated RBC % 0 Sodium 135 Potassium 3.6 Chloride 97 L Carbon Dioxide 28 Anion Gap 10 BUN 9 Creatinine 0.53 Est GFR ( Amer) 142.4 Est GFR (Non-Af Amer) 117.7 BUN/Creatinine Ratio 17.0 Glucose 117 H Lactic Acid 0.9 Calcium 9.1 Total Bilirubin 0.50 AST 15 ALT 43 Alkaline Phosphatase 168 H C-Reactive Protein 299.68 H Total Protein 7.5 Albumin 3.6 Globulin 3.9 Albumin/Globulin Ratio 0.9 L Lipase < 10 L 11/23/18 11/23/18 07:25 07:25 WBC 24.4 H RBC 3.32 L Hgb 9.8 L Hct 29 L MCV 89 MCH 29 MCHC 33 RDW 13 Plt Count 490 H D MPV 7.0 L Neut % (Auto) 85.5 Lymph % (Auto) 5.1 [place] % (Auto) 8.0 Eos % (Auto) 0.3 Baso % (Auto) 1.1 Absolute Neuts (auto) 20.8 H Absolute Lymphs (auto) 1.2 Absolute Monos (auto) 2.0 H Absolute Eos (auto) 0.1 Absolute Basos (auto) 0.3 H Absolute Nucleated RBC 0 Nucleated RBC % 0 Sodium 136 Potassium 3.9 Chloride 102 Carbon Dioxide 29 Anion Gap 5 BUN 13 Creatinine 0.59 Est GFR ( Amer) 125.8 Est GFR (Non-Af Amer) 104.0 BUN/Creatinine Ratio 22.0 H Glucose 95 Lactic Acid Calcium 8.2 L Total Bilirubin AST ALT Alkaline Phosphatase C-Reactive Protein Total Protein Albumin Globulin Albumin/Globulin Ratio Lipase Intake & Output 11/22/18 11/23/18 11/23/18 22:59 06:59 14:59 Intake Total 2215 1175 Output Total 250 900 0 Balance 1965 275 0 Weight 162 lb Intake: IV Fluids 1360 815 ABX - CIPROFLOXACIN 210 ABX - FLAGYL 105 ABX - VANCOMYCIN 260 NS (0.9%) 500 Oral 855 360 Output: Urine 250 900 0 Physical exam: abdomen soft, tender in LLQ, induration and tenderness improved in the left groin region and over the pubis, drain in place with a small amount of purulent fluid in the tubing A/P: 58 F with an anterior abdominal wall abscess, sp IR drainage. The etiology of this abscess is unclear and although correlated with events relating to exertion, she does have evidence of thickening of her sigmoid colon , which may suggest she had diverticulitis. However no definitive communication is seen to the anterior abdominal wall and there is no extravasation of contrast. - Persistent sepsis after abscess drainage is not completely unexpected. Patient remains febrile and WBC 24. Per Dr. Lopez, abx switched to Zosyn. Abscess cultures are pending. I discussed with patient yesterday and again today that if she does not improve over the next 1-2 days I will take her to the OR for incision and drainage of the abscess. She prefers not to do this but she understands.
[2018-11-23] MEDS ORDERED: NS 0.9% 500 ML* 500 ML IV ONE (11:27)
[2018-11-23] MEDS: traMADol TAB* 50 MG PO PRN ×2 (14:01→20:33)
[2018-11-23] MEDS: Ondansetron INJ* 2 MG/ML VIAL IV PRN (14:05)
[2018-11-23] MEDS: ZOSYN 3.375 GM Q8H per EXTENDED INFUSION IVPB SCH ×4 (14:08→22:33)
[2018-11-23] MEDS ORDERED: Famotidine TAB* 20 MG ONE (16:11)
[2018-11-23 18:27] LABS: Urine Appearance Cloudy; Urine Bacteria Absent (Absent); Urine Bilirubin Negative (Negative); Urine Blood Negative (Negative); Urine Color Amber; Urine Glucose Negative (Negative); Urine Ketones Negative (Negative); Urine Nitrite Negative (Negative); Urine Protein Negative (Negative); Urine Red Blood Cell Trace(0-2/hpf) (Absent); Urine Specific Gravity 1.024 (1.010-1.030); Urine Squamous Epithelial Cell Present (Absent); Urine Urobilinogen Positive (Negative); Urine White Blood Cell 1+(6-10/hpf) (Absent)
[2018-11-23] MEDS: NS 0.9% 1000 ML** 1,000 ML IV SCH (22:33)
[2018-11-24] MEDS: Ketorolac INJ* 15 MG/ML 1 ML VIAL IV PUSH PRN ×2 (00:56→19:42)
[2018-11-24] MEDS: Heparin VIAL(*) 5000 UNITS/ML VIAL (FIVE THOUSAND) SUBCUT SCH ×3 (06:21→22:47)
[2018-11-24] MEDS: NS 0.9% 1000 ML** 1,000 ML IV SCH (06:22)
[2018-11-24] MEDS: ZOSYN 3.375 GM Q8H per EXTENDED INFUSION IVPB SCH ×6 (06:25→22:47)
[2018-11-24 06:45] LABS: Hematocrit 29 % (35-47); Hemoglobin 9.4 g/dl (12.0-16.0); Mean Corpuscular HGB Conc 33 g/dl (31-36); Mean Corpuscular Hemoglobin 29 pg (27-31); Mean Corpuscular Volume 90 fL (80-97); Mean Platelet Volume 7.3 fL (7.4-10.4); Platelet Count 421 10^3/ul (150-450); Red Blood Count 3.19 10^6/ul (4.00-5.40); Red Cell Distribution Width 14 % (10.5-15); White Blood Count 25.8 10^3/ul (3.5-10.8)
[2018-11-24 07:00] LABS: CO2 Carbon Dioxide 20 mmol/L (22-32); Calcium 7.6 mg/dL (8.6-10.3); Chloride 105 mmol/L (101-111); Sodium 136 mmol/L (135-145)
[2018-11-24 07:03] LABS: Anion Gap 11 mmol/L (2-11)
[2018-11-24 07:06] LABS: BUN/Creatinine Ratio 20.7 (8-20); Blood Urea Nitrogen 12 mg/dL (6-24); EGFR African American 128.3 (>60); Glucose 73 mg/dL (70-100)
[2018-11-24 07:19] LABS: ABS Basophils 0 10^3/ul (0-0.2); ABS Eosinophils 0.1 10^3/ul (0-0.6); ABS Lymphocytes 0.9 10^3/ul (1.0-4.8); ABS Monocytes 1.3 10^3/ul (0-0.8); ABS Neutrophils 23.4 10^3/ul (1.5-7.7); ABS Nucleated RBC 0 10^3/ul; Eosinophil % 0.5 %; Lymphocyte % 3.5 %; Nucleated Red Blood Cells % 0
[2018-11-24] MEDS: Acetaminophen TAB* 325 MG PO PRN ×3 (07:23→21:38)
[2018-11-24] MEDS: traMADol TAB* 50 MG PO PRN ×2 (07:23→22:48)
[2018-11-24] MEDS ORDERED: fentaNYL* 50 MCG/ML 2 ML VIAL (100 MCG VIAL) ONE ×2 (09:38→11:15)
--- NOTE | 2018-11-24 12:34 | PN ---
Progress Note - Progress Note Date of Service: 11/24/18 Note: Surgery Progress Note I saw and examined patient at approximately 8:30am this morning. S: Patient says she feels sweaty and tired because she is woken up multiple times in the night. She is ambulating without difficulty. Pain is still improved overall. She is tolerating a diet. She had a fever this morning. O: Vital Signs - 24 hr 11/23/18 11/23/18 11/23/18 14:01 16:06 16:13 Temperature 100.0 F Pulse Rate 86 Respiratory 18 18 18 Rate Blood Pressure 130/70 (mmHg) O2 Sat by Pulse 100 Oximetry 11/23/18 11/23/18 11/23/18 19:27 19:34 19:40 Temperature 99.7 F Pulse Rate 82 Respiratory 16 18 16 Rate Blood Pressure 94/50 (mmHg) O2 Sat by Pulse 91 Oximetry 11/23/18 11/23/18 11/23/18 20:33 22:38 22:39 Temperature 98.6 F Pulse Rate 80 Respiratory 16 16 16 Rate Blood Pressure 98/47 (mmHg) O2 Sat by Pulse 100 Oximetry 11/24/18 11/24/18 11/24/18 03:47 07:23 07:35 Temperature 99.6 F 101.2 F Pulse Rate 78 87 Respiratory 17 18 18 Rate Blood Pressure 101/46 115/53 (mmHg) O2 Sat by Pulse 97 94 Oximetry 11/24/18 11/24/18 08:00 09:27 Temperature Pulse Rate Respiratory 18 18 Rate Blood Pressure (mmHg) O2 Sat by Pulse Oximetry Laboratory Results - last 24 hr 11/23/18 11/24/18 11/24/18 18:00 06:10 06:10 WBC 25.8 H RBC 3.19 L Hgb 9.4 L Hct 29 L MCV 90 MCH 29 MCHC 33 RDW 14 Plt Count 421 MPV 7.3 L Neut % (Auto) 90.8 Lymph % (Auto) 3.5 [place] % (Auto) 5.0 Eos % (Auto) 0.5 Baso % (Auto) 0.2 Absolute Neuts (auto) 23.4 H Absolute Lymphs (auto) 0.9 L Absolute Monos (auto) 1.3 H Absolute Eos (auto) 0.1 Absolute Basos (auto) 0 Absolute Nucleated RBC 0 Nucleated RBC % 0 Sodium 136 Potassium TNP Chloride 105 Carbon Dioxide 20 L Anion Gap 11 BUN 12 Creatinine 0.58 Est GFR ( Amer) 128.3 Est GFR (Non-Af Amer) 106.0 BUN/Creatinine Ratio 20.7 H Glucose 73 Calcium 7.6 L Urine Color [place] Urine Appearance Cloudy Urine pH 5.0 Ur Specific [place] 1.024 Urine Protein Negative Urine Ketones Negative Urine Blood Negative Urine Nitrate Negative Urine Bilirubin Negative Urine Urobilinogen Positive A Ur Leukocyte Esterase 2+ A Urine WBC (Auto) 1+(6-10/hpf) A Urine RBC (Auto) Trace(0-2/hpf) Ur Squamous Epith Cells Present A Urine Bacteria Absent Urine Glucose Negative 11/24/18 07:15 WBC RBC Hgb Hct MCV MCH MCHC RDW Plt Count MPV Neut % (Auto) Lymph % (Auto) [place] % (Auto) Eos % (Auto) Baso % (Auto) Absolute Neuts (auto) Absolute Lymphs (auto) Absolute Monos (auto) Absolute Eos (auto) Absolute Basos (auto) Absolute Nucleated RBC Nucleated RBC % Sodium Potassium 3.8 Chloride Carbon Dioxide Anion Gap BUN Creatinine Est GFR ( Amer) Est GFR (Non-Af Amer) BUN/Creatinine Ratio Glucose Calcium Urine Color Urine Appearance Urine pH Ur Specific [place] Urine Protein Urine Ketones Urine Blood Urine Nitrate Urine Bilirubin Urine Urobilinogen Ur Leukocyte Esterase Urine WBC (Auto) Urine RBC (Auto) Ur Squamous Epith Cells Urine Bacteria Urine Glucose Intake & Output 11/23/18 11/24/18 11/24/18 22:59 06:59 14:59 Intake Total 1488 1055 Output Total 680 510 0 Balance 808 545 0 Intake: IV Fluids 888 1055 ABX - ZOSYN 105 105 NS (0.9%) 783 950 Oral 600 0 Output: Pigtail Drain 30 10 Urine 650 500 0 Other: Estimated Void Medium Physical exam: Abd: soft, slightly tender in LLQ, small area of fluctuance in left groin and mildly tender, drain in place with small amount or purulent fluid in bag and tubing, no significant erythema A/P: 58 F with abdominal wall abscess, remains febrile and elevated WBC. - Dr. Reynoso from IR upsized drain to 14F tube and was able to aspirate 60cc more of purulent fluid. Continue Q8H flushing of drain. - Continue abx, fu sensitivities of culture, e.coli growing out - Patient understands that I&D may be necessary if she does not defervesce and WBC does not downtrend in the next several days.
--- NOTE | 2018-11-24 15:47 | PN ---
Subjective Date of Service: 11/24/18 Interval History: Pt is feeling much better after repeat aspiration and new larger pigtail catheter. She previously had pain in the L groin/LLQ with sitting on the toilet and this is now resolved. She has had no diarrhea over the last couple days. She is tired but has no other complaints. Objective Active Medications: Acetaminophen (Tylenol Tab*) 650 mg PO Q4H PRN PRN Reason: FEVER/PAIN Last Admin: 11/24/18 13:58 Dose: 650 mg Famotidine (Pepcid Tab*) 20 mg PO BID PRN PRN Reason: DYSPEPSIA Heparin Sodium (Porcine) (Heparin Vial(*)) 5,000 units SUBCUT Q8HR [facility] Last Admin: 11/24/18 14:01 Dose: 5,000 units Sodium Chloride (Ns 0.9% 1000 Ml*) 1,000 mls @ 125 mls/hr IV PER RATE [facility] Last Admin: 11/24/18 06:22 Dose: 125 mls/hr Piperacillin Sod/Tazobactam (Sod 3.375 gm/ Sodium Chloride) 100 mls @ 25 mls/ hr IVPB Q8H [facility] Last Admin: 11/24/18 06:25 Dose: 25 mls/hr Ketorolac Tromethamine (Toradol Inj*) 15 mg IV PUSH Q6H PRN PRN Reason: PAIN Last Admin: 11/24/18 00:56 Dose: 15 mg Ondansetron HCl (Zofran Inj*) 4 mg IV Q8H PRN PRN Reason: NAUSEA Last Admin: 11/23/18 14:05 Dose: 4 mg Pharmacy Consult (Zosyn Per Pharmacy*) 1 note FOLLOW UP .ZOSYN PER PHARMACY [facility] Tramadol HCl (Ultram*) 50 mg PO Q6H PRN PRN Reason: PAIN Last Admin: 11/24/18 07:23 Dose: 50 mg Vital Signs - 8 hr 11/24/18 11/24/18 11/24/18 08:00 09:27 15:32 Temperature 99.5 F Pulse Rate 83 Respiratory 18 18 18 Rate Blood Pressure 105/43 (mmHg) O2 Sat by Pulse 97 Oximetry Oxygen Devices in Use Now: None Appearance: Middle aged female lying in bed, NAD Eyes: No Scleral Icterus Ears/Nose/Mouth/Throat: Mucous Membranes Moist Respiratory: Symmetrical Chest Expansion and Respiratory Effort, Clear to Auscultation Cardiovascular: NL Sounds; No Murmurs; No JVD, RRR, No Edema Abdominal: - - BS+ soft, NT (except in LLQ where abscess is), ND Extremities: No Clubbing, Cyanosis Skin: - - LLQ/L groin with area of induration and mild erythema, pigtail drain in place draining blood tinged thick gómez pus Neurological: Alert and Oriented x 3 Result Diagrams: 11/24/18 06:10 11/24/18 07:15 Microbiology and Other Data: Microbiology 11/22/18 19:45 Gram Stain - Final Body Fluid - Abdominal Blood Cx 11/23: Pending UA: Ordered Diagnostic Imagin11/22/18: CT Abdomen and Pelvis: A fluid collection in the L inguinal region 13cm x 6.2cm x 6 cm Assess/Plan/Problems-Billing Ms Pacheco is a 58 yo F with no significant PMHx who presented with 10 days of L inguinal pain and found to have 13cm x 6 cm x 6cm abdominal wall collection , with no noted bowel involvement, though concern for diverticulitis given thickened sigmoid colon on scan. - Patient Problems (1) Abdominal wall abscess Current Visit: Yes Status: Acute Code(s): L02.211 - CUTANEOUS ABSCESS OF ABDOMINAL WALL SNOMED Code(s): 03923549 Comment: Pt now s/p repeat aspiration and replacement of new pigtail catheter. A significant amount (~150ml has been drained today from the abscess collection). Continue zosyn for Ecoli and Bacteroides. Given the bacteria that have grown from the culture I am concerned that this may have developed from underlying diverticulitis. Await further input from general surgery and to see how she does post IR drainage. (2) Diarrhea Current Visit: Yes Status: Acute Code(s): R19.7 - DIARRHEA, UNSPECIFIED SNOMED Code(s): 65105903 Comment: Resolved. Monitor while on zosyn. (3) SIRS (systemic inflammatory response syndrome) Current Visit: Yes Status: Acute Code(s): R65.10 - SIRS OF NON-INFECTIOUS ORIGIN W/O ACUTE ORGAN DYSFUNCTION SNOMED Code(s): 193481918 Comment: Pt was septic shortly after presentation to the ER from the abdominal wall abscess. Sepsis has now resolved. (4) DVT prophylaxis Current Visit: Yes Status: Acute Code(s): CLI7942 - SNOMED Code(s): 177710814 Comment: SQ heparin (5) Full code status Current Visit: Yes Status: Acute Code(s): Z78.9 - OTHER SPECIFIED HEALTH STATUS SNOMED Code(s): 046804239 Status and Disposition: Inpatient
[2018-11-25] MEDS: Acetaminophen TAB* 325 MG PO PRN ×2 (02:00→06:23)
[2018-11-25] MEDS: NS 0.9% 1000 ML** 1,000 ML IV SCH ×2 (05:10→17:48)
[2018-11-25] MEDS: ZOSYN 3.375 GM Q8H per EXTENDED INFUSION IVPB SCH ×6 (06:17→23:35)
[2018-11-25] MEDS: Heparin VIAL(*) 5000 UNITS/ML VIAL (FIVE THOUSAND) SUBCUT SCH ×3 (06:17→21:20)
[2018-11-25 07:49] LABS: Hematocrit 26 % (35-47); Hemoglobin 8.6 g/dl (12.0-16.0); Mean Corpuscular HGB Conc 33 g/dl (31-36); Mean Corpuscular Hemoglobin 29 pg (27-31); Mean Corpuscular Volume 88 fL (80-97); Mean Platelet Volume 6.9 fL (7.4-10.4); Platelet Count 454 10^3/ul (150-450); Red Blood Count 2.93 10^6/ul (4.00-5.40); Red Cell Distribution Width 14 % (10.5-15); White Blood Count 23.6 10^3/ul (3.5-10.8)
[2018-11-25 08:36] LABS: ABS Basophils 0.1 10^3/ul (0-0.2); ABS Eosinophils 0.2 10^3/ul (0-0.6); ABS Lymphocytes 1.1 10^3/ul (1.0-4.8); ABS Monocytes 0.9 10^3/ul (0-0.8); ABS Neutrophils 21.2 10^3/ul (1.5-7.7); ABS Nucleated RBC 0 10^3/ul; Lymphocyte % 4.7 %; Nucleated Red Blood Cells % 0
--- NOTE | 2018-11-25 09:40 | PN ---
Progress Note - Progress Note Date of Service: 11/25/18 Note: Surgery Progress: S: Feels "wiped out". Area of the abscess feels "hot and burning", though using minimal pain meds. Yifan diet. No N/V. Passing flatus, but no stool since diarrhea the day of admission. No SOB. O: Vital Signs - 8 hr 11/25/18 11/25/18 11/25/18 01:56 02:02 04:04 Temperature 100.9 F 99.2 F Pulse Rate 82 81 Respiratory 18 17 18 Rate Blood Pressure 104/57 108/56 (mmHg) O2 Sat by Pulse 96 96 Oximetry 11/25/18 07:25 Temperature 99.7 F Pulse Rate 79 Respiratory 16 Rate Blood Pressure 104/54 (mmHg) O2 Sat by Pulse 96 Oximetry Intake and Output Last 24 Hours 11/23/18 11/24/18 11/25/18 11/26/18 06:59 06:59 06:59 06:59 Intake Total 3390 4194 3040 Output Total 1150 1440 1650 Balance 2240 2754 1390 Weight 162 lb Intake: IV Fluids 2175 1943 990 ABX - CIPROFLOXACIN 210 ABX - FLAGYL 105 ABX - VANCOMYCIN 260 ABX - ZOSYN 210 NS (0.9%) 500 1733 990 IVPB 1351 100 ABX - CIPROFLOXACIN 110 ABX - FLAGYL 105 ABX - ZOSYN 100 NS (0.9%) 1136 Oral 7223 874 1382 Output: Pigtail Drain 40 150 Urine 1150 1150 1500 Liquid Stool 250 Other: Estimated Void Medium Date of Last Bowel 11/23/18 Movement # Voids 1 Gen: appears a bit disheveled, but NAD Heart: reg Lungs: clear to bases Abd: mild diffuse erythema over LLQ extending to midline and suprapubic areas; pigtail catheter with copious purulent drainage in bag; firm/indurated over area of abscess with tenderness mostly over the medial aspect and suprapubic area Laboratory Tests 11/23/18 11/24/18 11/25/18 07:25 06:10 07:42 WBC 24.4 H 25.8 H 23.6 H A: abd wall abscess, s/p perc drain by IR, with some improvement, though persistent leukocytosis, low grade fever and tenderness P: cont drain, IV abx (Zosyn); consideration for formal I&D? Dr. Braswell to see.
--- NOTE | 2018-11-25 11:20 | PN ---
Progress Note - Progress Note Date of Service: 11/25/18 Note: Surgery Progress Note S: Patient underwent upsizing of IR drain yesterday to a 14F with more purulent fluid draining. She has had low grade fevers. WBC is still elevated. She feels that the left groin area is tender because much of the loculations were broken up yesterday. She has an excellent appetite, has BM, feels tired because she cannot sleep at night from the constant interruptions. O: Vital Signs - 24 hr 11/24/18 11/24/18 11/24/18 15:32 19:30 20:03 Temperature 99.5 F 100.5 F Pulse Rate 83 81 Respiratory 18 18 Rate Blood Pressure 105/43 131/54 (mmHg) O2 Sat by Pulse 97 97 Oximetry 11/24/18 11/25/18 11/25/18 22:48 01:56 02:02 Temperature 100.9 F Pulse Rate 82 Respiratory 18 18 17 Rate Blood Pressure 104/57 (mmHg) O2 Sat by Pulse 96 Oximetry 11/25/18 11/25/18 04:04 07:25 Temperature 99.2 F 99.7 F Pulse Rate 81 79 Respiratory 18 16 Rate Blood Pressure 108/56 104/54 (mmHg) O2 Sat by Pulse 96 96 Oximetry Laboratory Results - last 24 hr 11/24/18 11/25/18 06:10 07:42 WBC 23.6 H RBC 2.93 L Hgb 8.6 L Hct 26 L MCV 88 MCH 29 MCHC 33 RDW 14 Plt Count 454 H MPV 6.9 L Neut % (Auto) 89.9 Lymph % (Auto) 4.7 [place] % (Auto) 3.8 Eos % (Auto) 1.0 Baso % (Auto) 0.6 Absolute Neuts (auto) 21.2 H Absolute Lymphs (auto) 1.1 Absolute Monos (auto) 0.9 H Absolute Eos (auto) 0.2 Absolute Basos (auto) 0.1 Absolute Nucleated RBC 0 Nucleated RBC % 0 Sodium 136 Potassium TNP Chloride 105 Carbon Dioxide 20 L Anion Gap 11 BUN 12 Creatinine 0.58 Est GFR ( Amer) 128.3 Est GFR (Non-Af Amer) 106.0 BUN/Creatinine Ratio 20.7 H Glucose 73 Calcium 7.6 L C-Reactive Protein 278.50 H Intake & Output 01/11/25/18 11/25/18 22:59 06:59 14:59 Intake Total 1500 1340 120 Output Total 150 1020 500 Balance 1350 320 -380 Intake: IV Fluids 990 NS (0.9%) 990 IVPB 100 ABX - ZOSYN 100 Oral 1500 250 120 Output: Pigtail Drain 70 Urine 150 950 500 Physical exam: left groin tender, erythema over pubis and a blister near the drain site. No significant abdominal tenderness, drain output copious and brown , purulent Culture: +e.coli, bacteroides Abx: zosyn I/O: approximately 150 cc from drain A/P: 58 F with anterior wall abscess, possibly from diverticulitis, s/p upsizing of IR drain with more adequate drainage. - Patient appears well, appears to be defervescing and patient says she is not taking as much tylenol. WBC remains high. Will continue to monitor as the drain was just upsized yesterday and drainage has significant increased since then. - I made patient NPO after midnight, Dr. Kunz is hardwood floor installation helper this weekend and will assess in AM to see if patient should go for I&D or repeat CT to show if there is residual abscess.
[2018-11-25] MEDS: traMADol TAB* 50 MG PO PRN (11:46)
--- NOTE | 2018-11-25 11:53 | PN ---
Subjective Date of Service: 11/25/18 Interval History: Pt is feeling well. She continues to have pain, swelling and heat in the L groin. No diarrhea. She is worried about needing an I&D. Objective Active Medications: Acetaminophen (Tylenol Tab*) 650 mg PO Q4H PRN PRN Reason: FEVER/PAIN Last Admin: 11/25/18 06:23 Dose: 650 mg Famotidine (Pepcid Tab*) 20 mg PO BID PRN PRN Reason: DYSPEPSIA Heparin Sodium (Porcine) (Heparin Vial(*)) 5,000 units SUBCUT Q8HR [facility] Last Admin: 11/25/18 06:17 Dose: 5,000 units Sodium Chloride (Ns 0.9% 1000 Ml*) 1,000 mls @ 125 mls/hr IV PER RATE [facility] Last Admin: 11/25/18 05:10 Dose: 125 mls/hr Piperacillin Sod/Tazobactam (Sod 3.375 gm/ Sodium Chloride) 100 mls @ 25 mls/ hr IVPB Q8H [facility] Last Admin: 11/25/18 06:17 Dose: 25 mls/hr Ketorolac Tromethamine (Toradol Inj*) 15 mg IV PUSH Q6H PRN PRN Reason: PAIN Last Admin: 11/24/18 19:42 Dose: 15 mg Ondansetron HCl (Zofran Inj*) 4 mg IV Q8H PRN PRN Reason: NAUSEA Last Admin: 11/23/18 14:05 Dose: 4 mg Pharmacy Consult (Zosyn Per Pharmacy*) 1 note FOLLOW UP .ZOSYN PER PHARMACY [facility] Tramadol HCl (Ultram*) 50 mg PO Q6H PRN PRN Reason: PAIN Last Admin: 11/24/18 22:48 Dose: 50 mg Vital Signs - 8 hr 11/25/18 11/25/18 04:04 07:25 Temperature 99.2 F 99.7 F Pulse Rate 81 79 Respiratory 18 16 Rate Blood Pressure 108/56 104/54 (mmHg) O2 Sat by Pulse 96 96 Oximetry Oxygen Devices in Use Now: None Appearance: Middle aged female sitting up in bed, NAD Eyes: No Scleral Icterus Ears/Nose/Mouth/Throat: Mucous Membranes Moist Respiratory: Symmetrical Chest Expansion and Respiratory Effort, Clear to Auscultation Cardiovascular: NL Sounds; No Murmurs; No JVD, RRR, No Edema Abdominal: - - BS+ soft, ND, tender to palpation in the L groin/pelvis; significant induration to mons pubis and L groin area, slight increased warmth Extremities: No Clubbing, Cyanosis Skin: No Nodules or Sclerosis Neurological: Alert and Oriented x 3 Result Diagrams: 11/25/18 07:42 11/24/18 07:15 Microbiology and Other Data: Microbiology 11/22/18 19:45 Gram Stain - Final Body Fluid - Abdominal Blood Cx 11/23: Pending UA: Ordered Diagnostic Imagin11/22/18: CT Abdomen and Pelvis: A fluid collection in the L inguinal region 13cm x 6.2cm x 6 cm Assess/Plan/Problems-Billing Ms Pacheco is a 58 yo F with no significant PMHx who presented with 10 days of L inguinal pain and found to have 13cm x 6 cm x 6cm abdominal wall collection , with no noted bowel involvement, though concern for diverticulitis given thickened sigmoid colon on scan. - Patient Problems (1) Abdominal wall abscess Current Visit: Yes Status: Acute Code(s): L02.211 - CUTANEOUS ABSCESS OF ABDOMINAL WALL SNOMED Code(s): 80627839 Comment: Pt now s/p repeat aspiration and replacement of new pigtail catheter. The patient continues to drain a significant amount of pus from the pigtail catheter. She clinically looks well despite continued marked leukocytosis and elevated CRP. Still concerning for perforated diverticulitis. ID consult today. Continue zosyn for now. (2) Diarrhea Current Visit: Yes Status: Acute Code(s): R19.7 - DIARRHEA, UNSPECIFIED SNOMED Code(s): 53068271 Comment: Resolved. Monitor while on zosyn. (3) SIRS (systemic inflammatory response syndrome) Current Visit: Yes Status: Acute Code(s): R65.10 - SIRS OF NON-INFECTIOUS ORIGIN W/O ACUTE ORGAN DYSFUNCTION SNOMED Code(s): 153178782 Comment: Pt was septic shortly after presentation to the ER from the abdominal wall abscess. Sepsis has now resolved. (4) DVT prophylaxis Current Visit: Yes Status: Acute Code(s): IPV3576 - SNOMED Code(s): 957053180 Comment: SQ heparin (5) Full code status Current Visit: Yes Status: Acute Code(s): Z78.9 - OTHER SPECIFIED HEALTH STATUS SNOMED Code(s): 953526400 Status and Disposition: Inpatient
--- NOTE | 2018-11-25 14:54 | PN ---
Progress Note - Progress Note Date of Service: 11/25/18 SOAP: Subjective: Pt is in 1/10 pain at her left lower abdomen at this time at the location of her abscess. She is ambulating well and is tolerating a regular diet well. She is having no problems with urination. + flatus. Pt feels she will have a bowel movement soon. Pt denies fever, nausea, vomiting, chest pain, SOB, or abdominal pain. Objective: Vital Signs Temp 97.8 F 11/25/18 11:50 Pulse 79 11/25/18 07:25 Resp 16 11/25/18 13:48 BP 104/54 11/25/18 07:25 Pulse Ox 96 11/25/18 07:25 Intake & Output 11/24/18 11/25/18 11/25/18 18:59 06:59 18:59 Intake Total 200 2840 470 Output Total 630 1020 920 Balance -430 1820 -450 Intake: IV Fluids 990 NS (0.9%) 990 IVPB 100 ABX - ZOSYN 100 Oral 200 1750 470 Output: Pigtail Drain 80 70 220 Urine 550 950 700 General: Pt appears tired and is resting on her hospital bed with no signs of distress. She is hoping she will not need to be taken to the operating room for a formal I&D of her abscess. Heart: S1, S2. RRR. No M/R/G Lungs: Clear to auscultation Abdomen: Abscess drain is in place superior to the left inguinal region. Drain contains nonpurulent brown liquid. area of previous abscess is mildly erythematus and indurated. Extremities: No swelling noted in the lower extremities Assessment: 58 yo female 1 day s/p IR drainage of left suprapubic abdominal wall abscess. Pigtail catheter drain in place on the left. Plan: -continue drain -consider formal I&D -continue abx (zosyn)
[2018-11-25] MEDS: Ketorolac INJ* 15 MG/ML 1 ML VIAL IV PUSH PRN (17:44)
--- NOTE | 2018-11-25 20:02 | CONS ---
CONSULTATION REPORT: DATE OF CONSULT: 11/25/18. REQUESTING PHYSICIAN: Dr. Chris. CONSULTING SERVICE: Infectious Disease. REASON FOR CONSULTATION: Left lower quadrant abscess. IMPRESSION: 1. Left lower quadrant intra-abdominal abscess with communication to the abdominal wall, thickening of the sigmoid colon wall on CT imaging. Differential includes perforated diverticular abscess, usual bowel augustin in the fluid obtained from IR- guided drain placement with significant purulent fluid. 2. Leukocytosis, slight improvement. 3. ROCEPHIN caused hives. 4. History of section. RECOMMENDATIONS: Agree with Zosyn 3.375 g IV every 8 hours. Follow her white count if she is not continuing to improve. Re-imaging a consideration. She feels she has made considerable improvement so far in her symptoms. Her last fever was overnight, follow that as well. HISTORY OF PRESENT ILLNESS: This is a 58-year-old woman who has had left lower quadrant pain off and on for the last more than a week, often associated with exertion and further concern for incarcerated hernia. CT imaging showed an abscess, however. She had a white count of 22,000 on admission and fever as well. She had had some loose stools and decreased appetite, fevers and chills at home. She made her way to the hospital on the . She was started on antibiotics. She had a drain placed by Dr. Reynoso on the , it was repositioned on the . She has had considerable output since then with improvement in the redness, pain, and swelling in the left groin. She has no pain with movement of the left hip. She has never had abdominal infection, not sure if she has had diverticulitis in the past, does not tend to be on the diarrheal side of life. PAST MEDICAL HISTORY: History of x2 and fixation of the right humerus fracture. MEDICATIONS: 1. Tylenol. 2. Famotidine. 3. Heparin subcutaneous injection. 4. Ketorolac. 5. Zofran as needed. 6. Zosyn 3.375 g every 8 hours. 7. Tramadol. ALLERGIES: CEFTRIAXONE caused hives. FAMILY HISTORY: Mother with coronary artery disease and stomach cancer in the father. 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 She lives in [place]. She smokes a half pack a day. Does not drink alcohol. REVIEW OF SYSTEMS: All negative except as noted above to a 14-point review. PHYSICAL EXAM: Vital Signs: Temperature 37, heart rate 80, respiratory rate 16 , blood pressure 104/54, oxygen saturation 96% on room air. In general, she is awake, not in distress. Neurologic: She is oriented x3, follows all commands, and moves all extremities. HEENT: There is no conjunctival hemorrhage. Oropharynx without lesions. Neck: Neck is supple without mass. Heart has regular rate and rhythm without murmurs, rubs or gallops. Lungs are clear to auscultation bilaterally. Abdomen: Soft. There is right lower quadrant induration and erythema. Slight warmth. Tenderness to palpation. There is no rebound. There is a left lower quadrant drain with some purulent fluid. Skin: There is no rash other than around the left lower quadrant and no splinter hemorrhage. Musculoskeletal: There is no spine tenderness to palpation. There is no pain with left leg logroll. DIAGNOSTIC STUDIES/LAB DATA: White blood cell count 23, hemoglobin 8, platelets 454,000. Creatinine is 0.6. CRP 280, down from 299. Please see impressions and recommendations outlined above. Thank you for asking me to see Ms. Pacheco in consultation. [id number]/CPS #: [id number] [facility]
[2018-11-25] MEDS: Famotidine TAB* 20 MG PO PRN (21:19)
[2018-11-26] MEDS: Acetaminophen TAB* 325 MG PO PRN ×2 (00:35→13:12)
[2018-11-26] MEDS: NS 0.9% 1000 ML** 1,000 ML IV SCH ×2 (01:31→10:17)
[2018-11-26] MEDS: Heparin VIAL(*) 5000 UNITS/ML VIAL (FIVE THOUSAND) SUBCUT SCH ×3 (06:00→21:19)
[2018-11-26] MEDS: ZOSYN 3.375 GM Q8H per EXTENDED INFUSION IVPB SCH ×6 (06:24→23:02)
[2018-11-26 08:47] LABS: ABS Basophils 0.1 10^3/ul (0-0.2); ABS Eosinophils 0.2 10^3/ul (0-0.6); ABS Lymphocytes 1.6 10^3/ul (1.0-4.8); ABS Monocytes 0.7 10^3/ul (0-0.8); ABS Neutrophils 15.9 10^3/ul (1.5-7.7); ABS Nucleated RBC 0 10^3/ul; Eosinophil % 1.2 %; Hematocrit 28 % (35-47); Hemoglobin 9.4 g/dl (12.0-16.0); Lymphocyte % 8.7 %; Mean Corpuscular HGB Conc 34 g/dl (31-36); Mean Corpuscular Hemoglobin 30 pg (27-31); Mean Corpuscular Volume 89 fL (80-97); Nucleated Red Blood Cells % 0; Platelet Count 593 10^3/ul (150-450); Red Blood Count 3.11 10^6/ul (4.00-5.40); Red Cell Distribution Width 14 % (10.5-15); White Blood Count 18.6 10^3/ul (3.5-10.8)
--- NOTE | 2018-11-26 10:04 | PN ---
Progress Note - Progress Note Date of Service: 11/26/18 SOAP: Subjective: Feels a little better this morning, less pain Tolerating po and had BM Objective: Temp Pulse Resp BP Pulse Ox 98.8 F 78 16 123/59 97 11/26/18 07:16 11/26/18 07:16 11/26/18 07:16 11/26/18 07:16 11/26/18 07:16 Intake & Output 11/24/18 11/25/18 11/26/18 11/27/18 06:59 06:59 06:59 06:59 Intake Total 4194 3040 3450 Output Total 1440 1650 2830 Balance 2754 1390 620 Intake: IV Fluids 6875 805 2593 ABX - ZOSYN 210 NS (0.9%) 7331 500 4512 IVPB 1351 100 150 ABX - CIPROFLOXACIN 110 ABX - FLAGYL 105 ABX - ZOSYN 100 150 NS (0.9%) 1136 Oral 900 1950 1570 Output: Pigtail Drain 40 150 380 Urine 1150 1500 2450 Liquid Stool 250 Other: Estimated Void Medium Date of Last Bowel 11/23/18 Movement # Voids 1 PEX: Awake and alert Abd is soft and slightly distended. Bowel sounds are present. Persistent induration and redness/warmth left lower abd, groin and upper thigh/ pubis. Drain in place with thick gómez fluid in bag Ext without edema Laboratory Results - last 24 hr 11/26/18 08:42 WBC 18.6 H RBC 3.11 L Hgb 9.4 L Hct 28 L MCV 89 MCH 30 MCHC 34 RDW 14 Plt Count 593 H D MPV 7.0 L Neut % (Auto) 85.7 Lymph % (Auto) 8.7 [place] % (Auto) 3.9 Eos % (Auto) 1.2 Baso % (Auto) 0.5 Absolute Neuts (auto) 15.9 H Absolute Lymphs (auto) 1.6 Absolute Monos (auto) 0.7 Absolute Eos (auto) 0.2 Absolute Basos (auto) 0.1 Absolute Nucleated RBC 0 Nucleated RBC % 0 Assessment: Left groin abscess s/p percutaneous drainage-probable diverticular source. Leukocytosis-improving Plan: CT pelvis today-persistent erythema and induration If persistent collection-will need operative drainage Continue IV abx
[2018-11-26] MEDS ORDERED: Iohexol 300* (CONTRAST) 10 ML SDV IV ONE (11:50)
[2018-11-26] MEDS: Famotidine TAB* 20 MG PO PRN (15:01)
--- NOTE | 2018-11-26 16:17 | PN ---
Subjective Date of Service: 11/26/18 Interval History: Ms. Pacheco is feeling good. She was mad that she had to be NPO this morning for the CT and is very happy to be eating again. She had a bowel movement this morning. She continues to have pain at the left groin and describes it as superficial pain. The redness is improving she thinks. Continues to drain brownish fluid. Objective Active Medications: Acetaminophen (Tylenol Tab*) 650 mg PO Q4H PRN PRN Reason: FEVER/PAIN Last Admin: 11/26/18 13:12 Dose: 650 mg Famotidine (Pepcid Tab*) 20 mg PO BID PRN PRN Reason: DYSPEPSIA Last Admin: 11/26/18 15:01 Dose: 20 mg Heparin Sodium (Porcine) (Heparin Vial(*)) 5,000 units SUBCUT Q8HR [facility] Last Admin: 11/26/18 15:01 Dose: 5,000 units Sodium Chloride (Ns 0.9% 1000 Ml*) 1,000 mls @ 125 mls/hr IV PER RATE [facility] Last Admin: 11/26/18 10:17 Dose: 125 mls/hr Piperacillin Sod/Tazobactam (Sod 3.375 gm/ Sodium Chloride) 100 mls @ 25 mls/ hr IVPB Q8H [facility] Last Admin: 11/26/18 15:31 Dose: 25 mls/hr Ketorolac Tromethamine (Toradol Inj*) 15 mg IV PUSH Q6H PRN PRN Reason: PAIN Last Admin: 11/25/18 17:44 Dose: 15 mg Ondansetron HCl (Zofran Inj*) 4 mg IV Q8H PRN PRN Reason: NAUSEA Last Admin: 11/23/18 14:05 Dose: 4 mg Pharmacy Consult (Zosyn Per Pharmacy*) 1 note FOLLOW UP .ZOSYN PER PHARMACY [facility] Tramadol HCl (Ultram*) 50 mg PO Q6H PRN PRN Reason: PAIN Last Admin: 11/25/18 11:46 Dose: 25 mg Oxygen Devices in Use Now: None Appearance: alert, well appearing, comfortable Eyes: No Scleral Icterus Ears/Nose/Mouth/Throat: NL Teeth, Lips, Gums Neck: NL Appearance and Movements; NL JVP Respiratory: Symmetrical Chest Expansion and Respiratory Effort Cardiovascular: NL Sounds; No Murmurs; No JVD, RRR Abdominal: - - erythema left groin that is receding away from the marker line. the drain is half full of thick brown liquid. Lymphatic: No Cervical Adenopathy Extremities: No Edema Skin: No Rash or Ulcers Neurological: Alert and Oriented x 3 Result Diagrams: 11/26/18 08:42 11/24/18 07:15 Microbiology and Other Data: Microbiology 11/22/18 19:45 Gram Stain - Final Body Fluid - Abdominal Blood Cx 11/23: Pending UA: Ordered Diagnostic Imagin11/22/18: CT Abdomen and Pelvis: A fluid collection in the L inguinal region 13cm x 6.2cm x 6 cm Assess/Plan/Problems-Billing Ms Pacheco is a 58 yo F with no significant PMHx who presented with 10 days of L inguinal pain and found to have 13cm x 6 cm x 6cm abdominal wall collection - Patient Problems (1) Cellulitis Current Visit: Yes Status: Acute Code(s): L03.90 - CELLULITIS, UNSPECIFIED SNOMED Code(s): 777141498 Comment: while zosyn will adequately cover organisms of an intra-abdominal source, I am concerned for lack of soft tissue organism coverage, so I am adding tmp-smx for staph coverage (2) Abdominal wall abscess Current Visit: Yes Status: Acute Code(s): L02.211 - CUTANEOUS ABSCESS OF ABDOMINAL WALL SNOMED Code(s): 28561158 Comment: Pt now s/p repeat aspiration and replacement of new pigtail catheter. Repeat CT today showed minimal residual collection. (however, the catheter continues to drain) She clinically looks well despite continued marked leukocytosis and elevated CRP. (3) Anemia Current Visit: Yes Status: Acute Code(s): D64.9 - ANEMIA, UNSPECIFIED SNOMED Code(s): 543714203 Comment: normocytic and has dropped since admission likely related to drain and repeat procedures will work up with iron/tibc, b12, ferritin tomororw (4) DVT prophylaxis Current Visit: Yes Status: Acute Code(s): YTD0970 - SNOMED Code(s): 690380727 Comment: SQ heparin (5) SIRS (systemic inflammatory response syndrome) Current Visit: Yes Status: Acute Code(s): R65.10 - SIRS OF NON-INFECTIOUS ORIGIN W/O ACUTE ORGAN DYSFUNCTION SNOMED Code(s): 315745025 Comment: Resolved Status and Disposition: Inpatient
[2018-11-26] MEDS ORDERED: NS 0.9% 1000 ML** 1,000 ML IV SCH (17:12)
[2018-11-26] MEDS: Ketorolac INJ* 15 MG/ML 1 ML VIAL IV PUSH PRN (18:03)
[2018-11-26] MEDS: Sulfamethox/Trimethoprim DS 800/160* TAB PO SCH (21:19)
[2018-11-27] MEDS: Acetaminophen TAB* 325 MG PO PRN ×2 (03:02→14:23)
[2018-11-27 06:10] LABS: ABS Basophils 0.1 10^3/ul (0-0.2); ABS Eosinophils 0.3 10^3/ul (0-0.6); ABS Lymphocytes 1.8 10^3/ul (1.0-4.8); ABS Monocytes 0.7 10^3/ul (0-0.8); ABS Neutrophils 10.5 10^3/ul (1.5-7.7); ABS Nucleated RBC 0 10^3/ul; Eosinophil % 2.2 %; Hematocrit 27 % (35-47); Hemoglobin 9.1 g/dl (12.0-16.0); Lymphocyte % 13.6 %; Mean Corpuscular HGB Conc 34 g/dl (31-36); Mean Corpuscular Hemoglobin 30 pg (27-31); Mean Corpuscular Volume 88 fL (80-97); Mean Platelet Volume 7.3 fL (7.4-10.4); Nucleated Red Blood Cells % 0; Platelet Count 594 10^3/ul (150-450); Red Blood Count 3.08 10^6/ul (4.00-5.40); Red Cell Distribution Width 13 % (10.5-15); White Blood Count 13.4 10^3/ul (3.5-10.8)
[2018-11-27] MEDS: ZOSYN 3.375 GM Q8H per EXTENDED INFUSION IVPB SCH ×6 (06:17→23:57)
[2018-11-27] MEDS: Heparin VIAL(*) 5000 UNITS/ML VIAL (FIVE THOUSAND) SUBCUT SCH ×3 (06:18→21:34)
[2018-11-27 06:30] LABS: Iron 41 ug/dL (50-212)
[2018-11-27 06:35] LABS: Anion Gap 8 mmol/L (2-11); BUN/Creatinine Ratio 18.2 (8-20); Blood Urea Nitrogen 8 mg/dL (6-24); CO2 Carbon Dioxide 28 mmol/L (22-32); Calcium 8.1 mg/dL (8.6-10.3); Chloride 105 mmol/L (101-111); EGFR African American 176.5 (>60); EGFR Non-African American 145.9 (>60); Glucose 106 mg/dL (70-100); Potassium 3.1 mmol/L (3.5-5.0); Sodium 141 mmol/L (135-145)
[2018-11-27 06:48] LABS: Ferritin 543.2 ng/mL (11-307)
[2018-11-27] MEDS ORDERED: Potassium Chloride LIQUID* 20 MEQ PACKET PO ONE (08:37)
[2018-11-27] MEDS: Ketorolac INJ* 15 MG/ML 1 ML VIAL IV PUSH PRN ×2 (09:29→18:08)
[2018-11-27] MEDS: Sulfamethox/Trimethoprim DS 800/160* TAB PO SCH ×2 (09:29→21:34)
--- NOTE | 2018-11-27 09:37 | PN ---
Subjective Date of Service: 11/27/18 Interval History: Feeling much better. Pain is mostly at the site of the blister in her groin. She has been walking but is limited by that irritation. No fevers. Good appetite. She thinks the drainage volume is decreasing. Objective Active Medications: Acetaminophen (Tylenol Tab*) 650 mg PO Q4H PRN PRN Reason: FEVER/PAIN Last Admin: 11/27/18 03:02 Dose: 650 mg Famotidine (Pepcid Tab*) 20 mg PO BID PRN PRN Reason: DYSPEPSIA Last Admin: 11/26/18 15:01 Dose: 20 mg Heparin Sodium (Porcine) (Heparin Vial(*)) 5,000 units SUBCUT Q8HR [facility] Last Admin: 11/27/18 06:18 Dose: 5,000 units Piperacillin Sod/Tazobactam (Sod 3.375 gm/ Sodium Chloride) 100 mls @ 25 mls/ hr IVPB Q8H [facility] Last Admin: 11/27/18 06:17 Dose: 25 mls/hr Ketorolac Tromethamine (Toradol Inj*) 15 mg IV PUSH Q6H PRN PRN Reason: PAIN Last Admin: 11/26/18 18:03 Dose: 15 mg Ondansetron HCl (Zofran Inj*) 4 mg IV Q8H PRN PRN Reason: NAUSEA Last Admin: 11/23/18 14:05 Dose: 4 mg Pharmacy Consult (Zosyn Per Pharmacy*) 1 note FOLLOW UP .ZOSYN PER PHARMACY [facility] Tramadol HCl (Ultram*) 50 mg PO Q6H PRN PRN Reason: PAIN Last Admin: 11/25/18 11:46 Dose: 25 mg Trimethoprim/Sulfamethoxazole (Bactrim Ds 800/160 Tab*) 1 tab PO BID [facility] Last Admin: 11/26/18 21:19 Dose: 1 tab Vital Signs - 8 hr 11/27/18 11/27/18 11/27/18 03:34 07:31 09:09 Temperature 99.0 F 98.7 F Pulse Rate 75 71 Respiratory 17 17 16 Rate Blood Pressure 133/52 121/47 (mmHg) O2 Sat by Pulse 97 98 Oximetry Oxygen Devices in Use Now: None Appearance: alert, well appearing Eyes: No Scleral Icterus Ears/Nose/Mouth/Throat: NL Teeth, Lips, Gums Neck: NL Appearance and Movements; NL JVP Respiratory: Symmetrical Chest Expansion and Respiratory Effort, Clear to Auscultation Cardiovascular: NL Sounds; No Murmurs; No JVD, RRR Abdominal: - - erythema continues to recede from the marker line but is present surrounding the drain, as is an open ulcer about 2 cm. drain has brownish white drainage in bag. Lymphatic: No Cervical Adenopathy Extremities: - - nonpitting edema Neurological: Alert and Oriented x 3 Result Diagrams: 11/27/18 05:08 11/27/18 05:08 Microbiology and Other Data: Microbiology 11/22/18 19:45 Gram Stain - Final Body Fluid - Abdominal Blood Cx 11/23: Pending UA: Ordered Diagnostic Imagin11/22/18: CT Abdomen and Pelvis: A fluid collection in the L inguinal region 13cm x 6.2cm x 6 cm Assess/Plan/Problems-Billing Ms Pacheco is a 58 yo F with no significant PMHx who presented with 10 days of L inguinal pain and found to have 13cm x 6 cm x 6cm abdominal wall collection - Patient Problems (1) Cellulitis Current Visit: Yes Status: Acute Code(s): L03.90 - CELLULITIS, UNSPECIFIED SNOMED Code(s): 982797745 Comment: while zosyn will adequately cover organisms of an intra-abdominal source, I am concerned for lack of soft tissue organism coverage, so I added tmp -smx for staph coverage yesterday (2) Abdominal wall abscess Current Visit: Yes Status: Acute Code(s): L02.211 - CUTANEOUS ABSCESS OF ABDOMINAL WALL SNOMED Code(s): 10521036 Comment: Repeat CT yesterday showed minimal residual collection. (however, the catheter continues to drain) She is also improving clinically Will plan to dc to home with drain, possibly tomorrow (3) Anemia Current Visit: Yes Status: Acute Code(s): D64.9 - ANEMIA, UNSPECIFIED SNOMED Code(s): 277741591 Comment: normocytic and has dropped since admission likely related to drain and repeat procedures iron low, ferritin high, b12 high, likely inflammation. no indication for iron repletion. (4) DVT prophylaxis Current Visit: Yes Status: Acute Code(s): GFB1223 - SNOMED Code(s): 391914551 Comment: SQ heparin (5) Hypokalemia Current Visit: Yes Status: Acute Code(s): E87.6 - HYPOKALEMIA SNOMED Code( s): 21423543 Comment: replete now, taking good po intake (6) SIRS (systemic inflammatory response syndrome) Current Visit: Yes Status: Acute Code(s): R65.10 - SIRS OF NON-INFECTIOUS ORIGIN W/O ACUTE ORGAN DYSFUNCTION SNOMED Code(s): 002358895 Comment: Resolved Status and Disposition: Inpatient
--- NOTE | 2018-11-27 10:32 | PN ---
Progress Note - Progress Note Date of Service: 11/27/18 SOAP: Subjective: Continues to have less pain Tolerating po and having BM's Objective: Temp Pulse Resp BP Pulse Ox 98.7 F 71 16 121/47 98 11/27/18 07:31 11/27/18 07:31 11/27/18 09:09 11/27/18 07:31 11/27/18 07:31 Intake & Output 11/25/18 11/26/18 11/27/18 11/28/18 06:59 06:59 06:59 06:59 Intake Total 3040 3450 3379 Output Total 1650 2830 1325 Balance 4777 840 2802 Intake: IV Fluids 990 1730 1485 NS (0.9%) 990 1730 1485 IVPB 100 150 214 ABX - ZOSYN 100 150 214 Oral 1950 1570 1680 Output: Pigtail Drain 150 380 125 Urine 1500 2450 1200 Other: Date of Last Bowel 11/26/18 Movement # Bowel Movements 1 Estimated Stool Amount Medium PEX: Abd is soft and non-distended. Drain in place-brown fluid in bag. Still with some induration and redness left lower abdominal wall and groin--less tender. Laboratory Results - last 24 hr 11/27/18 11/27/18 05:08 05:08 WBC 13.4 H RBC 3.08 L Hgb 9.1 L Hct 27 L MCV 88 MCH 30 MCHC 34 RDW 13 Plt Count 594 H MPV 7.3 L Neut % (Auto) 78.2 Lymph % (Auto) 13.6 [place] % (Auto) 5.6 Eos % (Auto) 2.2 Baso % (Auto) 0.4 Absolute Neuts (auto) 10.5 H Absolute Lymphs (auto) 1.8 Absolute Monos (auto) 0.7 Absolute Eos (auto) 0.3 Absolute Basos (auto) 0.1 Absolute Nucleated RBC 0 Nucleated RBC % 0 Sodium 141 Potassium 3.1 L Chloride 105 Carbon Dioxide 28 Anion Gap 8 BUN 8 Creatinine 0.44 L Est GFR ( Amer) 176.5 Est GFR (Non-Af Amer) 145.9 BUN/Creatinine Ratio 18.2 Glucose 106 H Calcium 8.1 L Iron 41 L Ferritin 543.2 H Vitamin B12 > 14[address] CT reviewed-Miminal amount of remaining fluid in abscess cavity--much improved Assessment: Left groin abscess s/p percutaneous drainage WBC down CT improved Clinically better Plan: IV abx Drainage If continued improvement D/C home on oral antibiotics with drain in place and outpatient followup.
[2018-11-28] MEDS: traMADol TAB* 50 MG PO PRN ×2 (03:16→22:01)
[2018-11-28 05:12] LABS: ABS Basophils 0.1 10^3/ul (0-0.2); ABS Eosinophils 0.2 10^3/ul (0-0.6); ABS Lymphocytes 1.9 10^3/ul (1.0-4.8); ABS Monocytes 0.8 10^3/ul (0-0.8); ABS Neutrophils 9.3 10^3/ul (1.5-7.7); ABS Nucleated RBC 0 10^3/ul; Eosinophil % 1.9 %; Hematocrit 30 % (35-47); Hemoglobin 9.8 g/dl (12.0-16.0); Lymphocyte % 15.1 %; Mean Corpuscular HGB Conc 32 g/dl (31-36); Mean Corpuscular Hemoglobin 29 pg (27-31); Mean Corpuscular Volume 91 fL (80-97); Mean Platelet Volume 7.2 fL (7.4-10.4); Nucleated Red Blood Cells % 0.1; Platelet Count 652 10^3/ul (150-450); Red Blood Count 3.34 10^6/ul (4.00-5.40); Red Cell Distribution Width 14 % (10.5-15); White Blood Count 12.3 10^3/ul (3.5-10.8)
[2018-11-28] MEDS: ZOSYN 3.375 GM Q8H per EXTENDED INFUSION IVPB SCH ×6 (06:19→23:54)
[2018-11-28] MEDS: Heparin VIAL(*) 5000 UNITS/ML VIAL (FIVE THOUSAND) SUBCUT SCH ×3 (06:25→22:02)
--- NOTE | 2018-11-28 08:42 | PN ---
Progress Note - Progress Note Date of Service: 11/28/18 Note: Surgery Progress Note S: Patient did well over weekend. No fevers and WBC has declined to 12 today. She is tolerating a regular diet, has normal bowel movements and pain has improved significantly. Yesterday, the area that was blistered opened and revealed the large abscess cavity below that has been draining. O: Vital Signs: Temp Pulse Resp BP Pulse Ox 98.6 F 81 19 146/70 98 11/28/18 03:12 11/28/18 03:12 11/28/18 06:20 11/28/18 03:12 11/28/18 03:12 Laboratory Last Values WBC 12.3 10^3/ul (3.5-10.8) H 11/28/18 05:03 RBC 3.34 10^6/ul (4.00-5.40) L 11/28/18 05:03 Hgb 9.8 g/dl (12.0-16.0) L 11/28/18 05:03 Hct 30 % (35-47) L 11/28/18 05:03 MCV 91 fL (80-97) 11/28/18 05:03 MCH 29 pg (27-31) 11/28/18 05:03 MCHC 32 g/dl (31-36) 11/28/18 05:03 RDW 14 % (10.5-15) 11/28/18 05:03 Plt Count 652 10^3/ul (150-450) H D 11/28/18 05:03 MPV 7.2 fL (7.4-10.4) L 11/28/18 05:03 Neut % (Auto) 75.3 % 11/28/18 05:03 Lymph % (Auto) 15.1 % 11/28/18 05:03 [place] % (Auto) 6.9 % 11/28/18 05:03 Eos % (Auto) 1.9 % 11/28/18 05:03 Baso % (Auto) 0.8 % 11/28/18 05:03 Absolute Neuts (auto) 9.3 10^3/ul (1.5-7.7) H 11/28/18 05:03 Absolute Lymphs (auto) 1.9 10^3/ul (1.0-4.8) 11/28/18 05:03 Absolute Monos (auto) 0.8 10^3/ul (0-0.8) 11/28/18 05:03 Absolute Eos (auto) 0.2 10^3/ul (0-0.6) 11/28/18 05:03 Absolute Basos (auto) 0.1 10^3/ul (0-0.2) 11/28/18 05:03 Absolute Nucleated RBC 0 10^3/ul 11/28/18 05:03 Nucleated RBC % 0.1 11/28/18 05:03 Sodium 141 mmol/L (135-145) 11/27/18 05:08 Potassium 3.1 mmol/L (3.5-5.0) L 11/27/18 05:08 Chloride 105 mmol/L (101-111) 11/27/18 05:08 Carbon Dioxide 28 mmol/L (22-32) 11/27/18 05:08 Anion Gap 8 mmol/L (2-11) 11/27/18 05:08 BUN 8 mg/dL (6-24) 11/27/18 05:08 Creatinine 0.44 mg/dL (0.51-0.95) L 11/27/18 05:08 Est GFR ( Amer) 176.5 (>60) 11/27/18 05:08 Est GFR (Non-Af Amer) 145.9 (>60) 11/27/18 05:08 BUN/Creatinine Ratio 18.2 (8-20) 11/27/18 05:08 Glucose 106 mg/dL (70-100) H 11/27/18 05:08 Lactic Acid 1.0 mmol/L (0.5-2.0) 11/23/18 11:58 Calcium 8.1 mg/dL (8.6-10.3) L 11/27/18 05:08 Iron 41 ug/dL (50-212) L 11/27/18 05:08 Ferritin 543.2 ng/mL (11-307) H 11/27/18 05:08 Total Bilirubin 0.50 mg/dL (0.2-1.0) 11/22/18 14:21 AST 15 U/L (13-39) 11/22/18 14:21 ALT 43 U/L (7-52) 11/22/18 14:21 Alkaline Phosphatase 168 U/L (34-104) H 11/22/18 14:21 C-Reactive Protein 70.04 mg/L (<8.01) H 11/28/18 05:03 Total Protein 7.5 g/dL (6.4-8.9) 11/22/18 14:21 Albumin 3.6 g/dL (3.2-5.2) 11/22/18 14:21 Globulin 3.9 g/dL (2-4) 11/22/18 14:21 Albumin/Globulin Ratio 0.9 (1-3) L 11/22/18 14:21 Lipase < 10 U/L (11.0-82.0) L 11/22/18 14:21 Vitamin B12 > 1450 pg/mL (180-914) H 11/27/18 05:08 Urine Color [place] 11/23/18 18:00 Urine Appearance Cloudy 11/23/18 18:00 Urine pH 5.0 (5-9) 11/23/18 18:00 Ur Specific [place] 1.024 (1.010-1.030) 11/23/18 18:00 Urine Protein Negative (Negative) 11/23/18 18:00 Urine Ketones Negative (Negative) 11/23/18 18:00 Urine Blood Negative (Negative) 11/23/18 18:00 Urine Nitrate Negative (Negative) 11/23/18 18:00 Urine Bilirubin Negative (Negative) 11/23/18 18:00 Urine Urobilinogen Positive (Negative) A 11/23/18 18:00 Ur Leukocyte Esterase 2+ (Negative) A 11/23/18 18:00 Urine WBC (Auto) 1+(6-10/hpf) (Absent) A 11/23/18 18:00 Urine RBC (Auto) Trace(0-2/hpf) (Absent) 11/23/18 18:00 Ur Squamous Epith Cells Present (Absent) A 11/23/18 18:00 Urine Bacteria Absent (Absent) 11/23/18 18:00 Urine Glucose Negative (Negative) 11/23/18 18:00 Intake & Output 11/27/18 11/28/18 11/28/18 22:59 06:59 14:59 Intake Total 1200 585 Output Total 220 800 Balance 980 -215 Intake: IVPB 100 105 ABX - FLAGYL 100 ABX - ZOSYN 105 Oral 1100 480 Output: Pigtail Drain 20 0 Urine 200 800 Other: Estimated Void Medium # Voids 2 Physical exam: left groin indurated with erythema along the pubis and lightly along leg, tender over catheter site. Medial to the catheter site is approximately 2cm opening draining purulent fluid. When probed, the cavity extends medially and deeply to the abdominal wall. The cavity was packed with gauze and covered with dressing. A/P: 58 F with anterior abdominal wall abscess, sp IR drainage and now has opened spontaneously. - BID packing changes. - Likely will remove drain before discharge if it has no further output. Please record I/O carefull today. - Appreciate Dr. Nam's recommendations on abx therapy and length, now patient has defervesced and WBC declined - Patient will need home health for assistance with wound care
[2018-11-28] MEDS: Ketorolac INJ* 15 MG/ML 1 ML VIAL IV PUSH PRN ×3 (08:44→19:53)
[2018-11-28] MEDS: Sulfamethox/Trimethoprim DS 800/160* TAB PO SCH ×2 (08:44→22:00)
[2018-11-28] MEDS: Acetaminophen TAB* 325 MG PO PRN ×2 (08:49→22:11)
--- NOTE | 2018-11-28 11:36 | PN ---
Subjective Date of Service: 11/28/18 Interval History: Pt's wound on abd wall in LLQ opened up and started draining purulent discharge. Dr. Braswell packed it this AM. Precutaneus drain still in place also draining LLQ pain still present Objective Active Medications: Acetaminophen (Tylenol Tab*) 650 mg PO Q4H PRN PRN Reason: FEVER/PAIN Last Admin: 11/28/18 08:49 Dose: 650 mg Famotidine (Pepcid Tab*) 20 mg PO BID PRN PRN Reason: DYSPEPSIA Last Admin: 11/26/18 15:01 Dose: 20 mg Heparin Sodium (Porcine) (Heparin Vial(*)) 5,000 units SUBCUT Q8HR [facility] Last Admin: 11/28/18 06:25 Dose: 5,000 units Piperacillin Sod/Tazobactam (Sod 3.375 gm/ Sodium Chloride) 100 mls @ 25 mls/ hr IVPB Q8H [facility] Last Admin: 11/28/18 06:19 Dose: 25 mls/hr Ketorolac Tromethamine (Toradol Inj*) 15 mg IV PUSH Q6H PRN PRN Reason: PAIN Last Admin: 11/27/18 18:08 Dose: 15 mg Ondansetron HCl (Zofran Inj*) 4 mg IV Q8H PRN PRN Reason: NAUSEA Last Admin: 11/23/18 14:05 Dose: 4 mg Pharmacy Consult (Zosyn Per Pharmacy*) 1 note FOLLOW UP .ZOSYN PER PHARMACY [facility] Tramadol HCl (Ultram*) 50 mg PO Q6H PRN PRN Reason: PAIN Last Admin: 11/28/18 03:16 Dose: 25 mg Trimethoprim/Sulfamethoxazole (Bactrim Ds 800/160 Tab*) 1 tab PO BID [facility] Last Admin: 11/28/18 08:44 Dose: 1 tab Vital Signs - 8 hr 11/28/18 11/28/18 11/28/18 06:20 07:48 08:58 Temperature 98.7 F Pulse Rate 70 Respiratory 19 16 16 Rate Blood Pressure 127/52 (mmHg) O2 Sat by Pulse 96 Oximetry Oxygen Devices in Use Now: None Appearance: 58 yo F in NAD, aAOx3 Eyes: No Scleral Icterus, PERRLA Ears/Nose/Mouth/Throat: NL Teeth, Lips, Gums, Mucous Membranes Moist Neck: NL Appearance and Movements; NL JVP, Trachea Midline Respiratory: Symmetrical Chest Expansion and Respiratory Effort, Clear to Auscultation Cardiovascular: NL Sounds; No Murmurs; No JVD, RRR Abdominal: - - LLQ cellultis improving. wound with packing in place, drain in LLQ with purulen drainage Result Diagrams: 11/28/18 05:03 11/27/18 05:08 Microbiology and Other Data: Microbiology 11/22/18 19:45 Gram Stain - Final Body Fluid - Abdominal Blood Cx 11/23: Pending UA: Ordered Diagnostic Imagin11/22/18: CT Abdomen and Pelvis: A fluid collection in the L inguinal region 13cm x 6.2cm x 6 cm Assess/Plan/Problems-Billing Ms Pacheco is a 58 yo F with no significant PMHx who presented with 10 days of L inguinal pain and found to have 13cm x 6 cm x 6cm abdominal wall collection - Patient Problems (1) Abdominal wall abscess Comment: Repeat CT showed minimal residual collection. (however, the catheter continues to drain) and the abscess opened up and started draining. now with packing BID as per DR. Braswell. She is improving clinically Plan is for moxifloxacin 400 mg daily x 2 weeks at home (2) Anemia Comment: normocytic and has dropped since admission likely related to drain and repeat procedures iron low, ferritin high, b12 high, likely inflammation. no indication for iron repletion. (3) Cellulitis Comment: while on zosyn likely related to skin injury before wound opened up, no improved, wound with packing. (4) Hypokalemia Comment: f/u with BMP in aM (5) SIRS (systemic inflammatory response syndrome) Comment: Resolved (6) DVT prophylaxis Comment: SQ heparin Status and Disposition: Inpatient
--- NOTE | 2018-11-28 17:34 | PN ---
Progress Note - Progress Note Date of Service: 11/28/18 SOAP: Subjective: [Pt states that she feels her health status has been improving over the last few days. Pt reports a 3/10 "burning" pain around the left groin. Pain is worse with ambulation or movement. She has been using an ice pack as instructed by nursing staff, which reduces pain. She states that she has no problems with bowel movements or urination at this time. she reports being ambulatory over the last few days and today has completed 3 laps around the unit. She has been tolerating a regular diet well. She does report some trouble sleeping which she attributes to anxiety about her wound packing and pain. Denies fever, chills, nausea, vomiting, chest pain, SOB, abdominal pain.] Objective: [ Vital Signs Temp 98.7 F 11/28/18 07:48 Pulse 70 11/28/18 07:48 Resp 16 11/28/18 08:58 BP 127/52 11/28/18 07:48 Pulse Ox 96 11/28/18 07:48 Intake & Output 11/27/18 11/28/18 11/28/18 18:59 06:59 18:59 Intake Total 600 1185 400 Output Total 1020 440 Balance 600 165 -40 Intake: IVPB 205 ABX - FLAGYL 100 ABX - ZOSYN 105 Oral 600 980 400 Output: Pigtail Drain 20 40 Urine 1000 400 Other: Estimated Void Medium Medium # Bowel Movements 3 Estimated Stool Amount Medium # Voids 3 2 General: Pt is resting comfortably on the hospital bed in good spirits. No signs of distress at this time. Heart: S1,S2. RRR. No M/R/G Lungs: Lungs clear to auscultation throughout Abdomen: Abdomen in non-tender and non distended. Bowel sounds are normoactive with auscultation. Inspection of the left groin and suprapubic region reveal moderate erythema. A pig tail catheter drain placed by IR is noted and draining. Drainage is gómez, purulent and a thin liquid in consistency. Medial to the catheter a 2cm opening is noted which is also draining. Palpation 360 degrees around the drainage site reveals induration. Induration is also noted in the suprapubic area. The 2cm opening which spontaneously opened yesterday is currently packed. Ext: Lower extremities have mild amounts of edema.] Assessment: [58 yo female with an anterior abdominal wall abscess s/p IR drainage and spontaneous opening.] Plan: [-continue abx per Dr. Nam's recommendation -Wound packing to be changed BID -Remove drain before pt discharge -Record I&O -Set up home health assistance for wound care after pt discharge.]
[2018-11-29] MEDS: Acetaminophen TAB* 325 MG PO PRN ×2 (04:08→11:17)
[2018-11-29 05:38] LABS: ABS Basophils 0.1 10^3/ul (0-0.2); ABS Eosinophils 0.3 10^3/ul (0-0.6); ABS Lymphocytes 2.6 10^3/ul (1.0-4.8); ABS Monocytes 0.9 10^3/ul (0-0.8); ABS Neutrophils 7.7 10^3/ul (1.5-7.7); ABS Nucleated RBC 0 10^3/ul; Eosinophil % 2.5 %; Hematocrit 28 % (35-47); Hemoglobin 9.3 g/dl (12.0-16.0); Lymphocyte % 22.5 %; Mean Corpuscular HGB Conc 33 g/dl (31-36); Mean Corpuscular Hemoglobin 29 pg (27-31); Mean Corpuscular Volume 89 fL (80-97); Mean Platelet Volume 7.2 fL (7.4-10.4); Nucleated Red Blood Cells % 0; Platelet Count 716 10^3/ul (150-450); Red Blood Count 3.19 10^6/ul (4.00-5.40); Red Cell Distribution Width 14 % (10.5-15); White Blood Count 11.6 10^3/ul (3.5-10.8)
[2018-11-29 06:01] LABS: BUN/Creatinine Ratio 13.5 (8-20); Calcium 8.1 mg/dL (8.6-10.3); EGFR African American 145.5 (>60); EGFR Non-African American 120.3 (>60); Potassium 3.2 mmol/L (3.5-5.0)
[2018-11-29] MEDS: Heparin VIAL(*) 5000 UNITS/ML VIAL (FIVE THOUSAND) SUBCUT SCH ×3 (06:11→22:56)
[2018-11-29] MEDS: ZOSYN 3.375 GM Q8H per EXTENDED INFUSION IVPB SCH ×6 (06:36→22:54)
--- NOTE | 2018-11-29 08:43 | PN ---
Progress Note - Progress Note Date of Service: 11/29/18 Note: Surgery Progress Note S: Patient is doing well. Had packing changed three more times yesterday. No fevers. WBC 11 today. O: Vital Signs: Temp Pulse Resp BP Pulse Ox 98.3 F 66 16 126/63 98 11/29/18 07:41 11/29/18 07:41 11/29/18 07:41 11/29/18 07:41 11/29/18 07:41 Laboratory Results - last 24 hr 11/29/18 11/29/18 04:59 04:59 WBC 11.6 H RBC 3.19 L Hgb 9.3 L Hct 28 L MCV 89 MCH 29 MCHC 33 RDW 14 Plt Count 716 H D MPV 7.2 L Neut % (Auto) 66.2 Lymph % (Auto) 22.5 [place] % (Auto) 8.1 Eos % (Auto) 2.5 Baso % (Auto) 0.7 Absolute Neuts (auto) 7.7 Absolute Lymphs (auto) 2.6 Absolute Monos (auto) 0.9 H Absolute Eos (auto) 0.3 Absolute Basos (auto) 0.1 Absolute Nucleated RBC 0 Nucleated RBC % 0 Sodium 138 Potassium 3.2 L Chloride 104 Carbon Dioxide 28 Anion Gap 6 BUN 7 Creatinine 0.52 Est GFR ( Amer) 145.5 Est GFR (Non-Af Amer) 120.3 BUN/Creatinine Ratio 13.5 Glucose 90 Calcium 8.1 L Intake & Output 11/28/18 11/29/18 11/29/18 22:59 06:59 14:59 Intake Total 800 800 Output Total 1110 1500 Balance -310 -700 Intake: Oral 800 800 Output: Pigtail Drain 10 0 Urine 1100 1500 Physical exam: Left groin- open wound medial to pigtail catheter, packing in place with purulent fluid, erythema along groin and leg improved, less tender and indurated A/P: 58 F with anterior abdominal wall abscess, improved after IR drainage and now opened spontaneously. - I removed pigtail catheter today as it was not drainage cavity that has now opened - Continue BID and PRN dressing changes, I asked Mya, nurse today, to use kerlix to ensure it is packed deeply - Patient will need home health and teaching for packing changes
[2018-11-29] MEDS ORDERED: Potassium Chlor TAB* 20 MEQ TAB.ER PO ONE (09:00)
[2018-11-29] MEDS: Ondansetron INJ* 2 MG/ML VIAL IV PRN (09:47)
[2018-11-29] MEDS ORDERED: Ibuprofen TAB* 600 MG PO PRN (11:25)
--- NOTE | 2018-11-29 13:47 | PN ---
Subjective Date of Service: 11/29/18 Interval History: Pt feels well. Had been unable to pack the wound by herself yet. Due to pannus and the location of the abscess it may be difficult to physically reach the spot by pt to pack it by herself. Objective Active Medications: Acetaminophen (Tylenol Tab*) 650 mg PO Q4H PRN PRN Reason: FEVER/PAIN Last Admin: 11/29/18 11:17 Dose: 650 mg Famotidine (Pepcid Tab*) 20 mg PO BID PRN PRN Reason: DYSPEPSIA Last Admin: 11/26/18 15:01 Dose: 20 mg Heparin Sodium (Porcine) (Heparin Vial(*)) 5,000 units SUBCUT Q8HR [facility] Last Admin: 11/29/18 06:11 Dose: 5,000 units Piperacillin Sod/Tazobactam (Sod 3.375 gm/ Sodium Chloride) 100 mls @ 25 mls/ hr IVPB Q8H [facility] Last Admin: 11/29/18 06:36 Dose: 25 mls/hr Ibuprofen (Motrin Tab*) 600 mg PO Q6H PRN PRN Reason: PAIN Ondansetron HCl (Zofran Inj*) 4 mg IV Q8H PRN PRN Reason: NAUSEA Last Admin: 11/29/18 09:47 Dose: 4 mg Pharmacy Consult (Zosyn Per Pharmacy*) 1 note FOLLOW UP .ZOSYN PER [facility]ARMACY [facility] Tramadol HCl (Ultram*) 50 mg PO Q6H PRN PRN Reason: PAIN Last Admin: 11/28/18 22:01 Dose: 50 mg Vital Signs - 8 hr 11/29/18 11/29/18 11/29/18 07:41 08:30 09:55 Temperature 98.3 F 98.3 F Pulse Rate 66 68 Respiratory 16 16 16 Rate Blood Pressure 126/63 147/85 (mmHg) O2 Sat by Pulse 98 Oximetry Oxygen Devices in Use Now: None Appearance: 58 yo F in nAD, AAOx3 Eyes: No Scleral Icterus, PERRLA Ears/Nose/Mouth/Throat: NL Teeth, Lips, Gums, Mucous Membranes Moist Neck: NL Appearance and Movements; NL JVP, Trachea Midline Respiratory: Symmetrical Chest Expansion and Respiratory Effort, Clear to Auscultation Cardiovascular: NL Sounds; No Murmurs; No JVD, RRR Abdominal: - - LLQ/inquinal absces with packing in place-are of induration above the abscess noted, some skin erythema surrounding the area, no cellulitis Lymphatic: No Cervical Adenopathy Extremities: No Edema, No Clubbing, Cyanosis Skin: No Nodules or Sclerosis, - - see above Neurological: Alert and Oriented x 3, NL Muscle Strength and Tone Result Diagrams: 11/29/18 04:59 11/29/18 04:59 Microbiology and Other Data: Microbiology 11/22/18 19:45 Gram Stain - Final Body Fluid - Abdominal Blood Cx 11/23: Pending UA: Ordered Diagnostic Imagin11/22/18: CT Abdomen and Pelvis: A fluid collection in the L inguinal region 13cm x 6.2cm x 6 cm Assess/Plan/Problems-Billing Ms Pacheco is a 58 yo F with no significant PMHx who presented with 10 days of L inguinal pain and found to have 13cm x 6 cm x 6cm abdominal wall collection - Patient Problems (1) Abdominal wall abscess Comment: Repeat CT 11/26/18 showed minimal residual collection. The abscess opened up and started draining on 11/28/18, now with packing BID, pigtail removed today. Pt is to be taught how to pack the wound, but the area is too difficult to reach for pt to do it herself. She is improving clinically Plan is for moxifloxacin 400 mg daily x 2 weeks at home once we can arrange insurance for pt to allow [facility] to pack the wound and f/u with surgery and ID (2) Anemia Comment: normocytic and has dropped since admission likely related to drain and repeat procedures iron low, ferritin high, b12 high, likely inflammation. no indication for iron repletion. (3) Cellulitis Comment: while on zosyn likely related to skin injury before wound opened up, now improved, wound with packing. (4) Hypokalemia Comment: raplacing PO (5) SIRS (systemic inflammatory response syndrome) Comment: Resolved (6) DVT prophylaxis Comment: SQ heparin Status and Disposition: Inpatient
[2018-11-30] MEDS: traMADol TAB* 50 MG PO PRN ×3 (05:45→22:14)
[2018-11-30] MEDS: Heparin VIAL(*) 5000 UNITS/ML VIAL (FIVE THOUSAND) SUBCUT SCH ×3 (05:46→22:14)
[2018-11-30 06:36] LABS: BUN/Creatinine Ratio 14.8 (8-20); Calcium 8.7 mg/dL (8.6-10.3); EGFR African American 121.1 (>60); Potassium 4.3 mmol/L (3.5-5.0)
[2018-11-30] MEDS: ZOSYN 3.375 GM Q8H per EXTENDED INFUSION IVPB SCH ×6 (06:48→23:31)
[2018-11-30] MEDS: Ibuprofen TAB* 600 MG PO PRN ×2 (09:17→20:06)
--- NOTE | 2018-11-30 10:52 | PN ---
Subjective Date of Service: 11/30/18 Interval History: Pt feels well. Pain in LLQ much less. still unable to pack the wound by herself Objective Active Medications: Acetaminophen (Tylenol Tab*) 650 mg PO Q4H PRN PRN Reason: FEVER/PAIN Last Admin: 11/29/18 11:17 Dose: 650 mg Famotidine (Pepcid Tab*) 20 mg PO BID PRN PRN Reason: DYSPEPSIA Last Admin: 11/26/18 15:01 Dose: 20 mg Heparin Sodium (Porcine) (Heparin Vial(*)) 5,000 units SUBCUT Q8HR [facility] Last Admin: 11/30/18 05:46 Dose: 5,000 units Piperacillin Sod/Tazobactam (Sod 3.375 gm/ Sodium Chloride) 100 mls @ 25 mls/ hr IVPB Q8H [facility] Last Admin: 11/30/18 06:48 Dose: 25 mls/hr Ibuprofen (Motrin Tab*) 300 mg PO Q6H PRN PRN Reason: PAIN Last Admin: 11/30/18 09:17 Dose: 300 mg Ondansetron HCl (Zofran Inj*) 4 mg IV Q8H PRN PRN Reason: NAUSEA Last Admin: 11/29/18 09:47 Dose: 4 mg Pharmacy Consult (Zosyn Per Pharmacy*) 1 note FOLLOW UP .[facility]YN [facility] Tramadol HCl (Ultram*) 25 mg PO Q6H PRN PRN Reason: PAIN Vital Signs - 8 hr 11/30/18 11/30/18 11/30/18 03:21 05:45 07:25 Temperature 98.5 F 97.4 F Pulse Rate 71 69 Respiratory 16 16 16 Rate Blood Pressure 129/58 146/73 (mmHg) O2 Sat by Pulse 96 97 Oximetry 11/30/18 08:00 Temperature Pulse Rate Respiratory 16 Rate Blood Pressure (mmHg) O2 Sat by Pulse Oximetry Oxygen Devices in Use Now: None Appearance: 58 yo F in NAD, aAOx3 Eyes: No Scleral Icterus, PERRLA Ears/Nose/Mouth/Throat: NL Teeth, Lips, Gums, Mucous Membranes Moist Neck: NL Appearance and Movements; NL JVP, Trachea Midline Respiratory: Symmetrical Chest Expansion and Respiratory Effort, Clear to Auscultation Cardiovascular: NL Sounds; No Murmurs; No JVD, RRR Abdominal: NL Sounds; No Tenderness; No Distention Lymphatic: No Cervical Adenopathy Extremities: No Edema, No Clubbing, Cyanosis Skin: No Nodules or Sclerosis, - - LLQ abd wound with packing in place, skin erythema resolved Neurological: Alert and Oriented x 3, NL Muscle Strength and Tone Result Diagrams: 11/29/18 04:59 11/30/18 05:54 Microbiology and Other Data: Microbiology 11/22/18 19:45 Gram Stain - Final Body Fluid - Abdominal Blood Cx 11/23: Pending UA: Ordered Diagnostic Imagin11/22/18: CT Abdomen and Pelvis: A fluid collection in the L inguinal region 13cm x 6.2cm x 6 cm Assess/Plan/Problems-Billing Ms Pacheco is a 58 yo F with no significant PMHx who presented with 10 days of L inguinal pain and found to have 13cm x 6 cm x 6cm abdominal wall collection - Patient Problems (1) Abdominal wall abscess Comment: Repeat CT 11/26/18 showed minimal residual collection. The abscess opened up and started draining on 11/28/18, now with packing BID, pigtail removed 11/29/18. Pt is to be taught how to pack the wound, but the area is too difficult to reach for pt to do it herself. She is improving clinically . Plan is to d/c pot home once Medicaid is active and pt can have VNS and also f/u with wound care and surgical assiciates for daily wound dressings Plan is for moxifloxacin 400 mg daily x 2 weeks at home once we can arrange insurance . Pt would like to have [facility] [place] [place] pharmacy to fill meds (2) Anemia Comment: normocytic and has dropped since admission likely related to drain and repeat procedures iron low, ferritin high, b12 high, likely inflammation. no indication for iron repletion. (3) Cellulitis Comment: while on zosyn likely related to skin injury before wound opened up, now improved, wound with packing. (4) Hypokalemia Comment: raplaced (5) SIRS (systemic inflammatory response syndrome) Comment: Resolved (6) DVT prophylaxis Comment: SQ heparin Status and Disposition: Inpatient
--- NOTE | 2018-11-30 10:52 | PN ---
Progress Note - Progress Note Date of Service: 11/30/18 SOAP: Subjective: [Pt states she is feeling well today. She reports 1/10 pain while on ibuprofen and tramadol. She states her pain is well controlled, and only made worse with ambulation and when her wound packing is changed. She is having no issues with urination or passing BMs. Pt is sleeping well. Pt states that she has completed setting up her health insurance and has many different ways she could address her need for wound care; including referral to the wound clinic, home nurse visits or via her after being trained. Denies fever or chills, nausea, vomiting, chest pain, SOB, abdominal pain. States the edema in her ankles has decreased in the last few days. ] Objective: [ Vital Signs Temp 97.4 F 11/30/18 07:25 Pulse 69 11/30/18 07:25 Resp 16 11/30/18 08:00 BP 146/73 11/30/18 07:25 Pulse Ox 97 11/30/18 07:25 Intake & Output 11/29/18 11/30/18 11/30/18 18:59 06:59 18:59 Intake Total 520 1375 Output Total 1400 3150 900 Balance -880 -1775 -900 Intake: IV Fluids 255 ABX - ZOSYN 225 NS (0.9%) 30 Oral 520 1120 Output: Urine 1400 3150 900 General: Pt is resting on her hospital bed and in a cheerful mood. Heart: S1, S2. RRR. No M/R/G Lungs: Clear to auscultation throughout Abdomen: Normoactive bowel sounds. 2cm open wound of the left groin is noted which is continuing to drain a light gómez purulent thing liquid. Packing is saturated at this time. Pigtail catheter drain placed by IR removed yesterday by Dr. Braswell. Area of erythema surrounding the left groin and pubic region has decreased significantly. Area surrounding open left groin wound is still slightly tender to palpation and has mild induration.] Ext: Lower extremity edema has significantly improved and is minimal at this point. Assessment: [58 yo Female with abdominal wall abscess s/p drainage by IR and spontaneous opening. Clinical picture has much improved.] Plan: [-Continue pain management -continue BID packing changes as needed -possible discharge tomorrow -set up wound care follow up with wound clinic or visiting nurse.]
--- NOTE | 2018-11-30 15:12 | PN ---
Progress Note - Progress Note Date of Service: 11/30/18 Note: Surgery Progress: S: Feels much better. Minimal discomfort; mostly at the time of packing changes. Has not been requiring more than Ibuprofen. Lelia diet. Hasn't had a BM for a day or two. Current Medications Acetaminophen (Tylenol Tab*) 650 mg PO Q4H PRN PRN Reason: FEVER/PAIN Last Admin: 11/29/18 11:17 Dose: 650 mg Famotidine (Pepcid Tab*) 20 mg PO BID PRN PRN Reason: DYSPEPSIA Last Admin: 11/26/18 15:01 Dose: 20 mg Heparin Sodium (Porcine) (Heparin Vial(*)) 5,000 units SUBCUT Q8HR [facility] Last Admin: 11/30/18 05:46 Dose: 5,000 units Piperacillin Sod/Tazobactam (Sod 3.375 gm/ Sodium Chloride) 100 mls @ 25 mls/ hr IVPB Q8H [facility] Last Admin: 11/30/18 06:48 Dose: 25 mls/hr Ibuprofen (Motrin Tab*) 300 mg PO Q6H PRN PRN Reason: PAIN Last Admin: 11/30/18 09:17 Dose: 300 mg Ondansetron HCl (Zofran Inj*) 4 mg IV Q8H PRN PRN Reason: NAUSEA Last Admin: 11/29/18 09:47 Dose: 4 mg Pharmacy Consult (Zosyn Per Pharmacy*) 1 note FOLLOW UP .Z[facility]YN [facility] Tramadol HCl (Ultram*) 25 mg PO Q6H PRN PRN Reason: PAIN O: Vital Signs - 8 hr 11/30/18 11/30/18 11/30/18 07:25 08:00 11:45 Temperature 97.4 F 97.4 F Pulse Rate 69 69 Respiratory 16 16 18 Rate Blood Pressure 146/73 138/90 (mmHg) O2 Sat by Pulse 97 98 Oximetry Intake and Output Last 24 Hours 11/28/18 11/29/18 11/30/18 12/01/18 06:59 06:59 06:59 06:59 Intake Total 1785 2000 1895 810 Output Total 1020 3050 4550 1500 Balance 049 -4388 -2655 -016 Intake: IV Fluids 255 ABX - ZOSYN 225 NS (0.9%) 30 IVPB 205 ABX - FLAGYL 100 ABX - ZOSYN 105 Oral 1580 2000 1640 810 Output: Pigtail Drain 20 50 Urine 1000 3000 4550 1500 Other: Estimated Void Medium # Bowel Movements 3 Estimated Stool Amount Medium # Voids 2 Gen: appears comfortable, animated (her baseline); NAD Abd: open wound LLQ with some remaining induration (improved); no sig tenderness , except upon removal of pkg. Drainage on dsg: light yellow/green. Wound clean with moderate fibrinous slough which is adherant; measures ~ 4.5 x 2 cm x 3.5 cm depth with similar undermining both medially and laterally. No evidence of undrained collection. Repacked w/ saline-moist 4x4; lelia'd well. A: s/p drainage of abd wall abscess, improved P: likely home tomorrow with ongoing wound care that likely can be managed by patient herself, with or without add'l help from and/or daughter. Weekly office f/u. Abx per hosp/ID.
[2018-12-01] MEDS: Ibuprofen TAB* 600 MG PO PRN ×2 (02:10→09:45)
[2018-12-01] MEDS: Famotidine TAB* 20 MG PO PRN (04:10)
[2018-12-01 05:33] LABS: Hematocrit 31 % (35-47); Hemoglobin 10.3 g/dl (12.0-16.0); Mean Corpuscular HGB Conc 34 g/dl (31-36); Mean Corpuscular Hemoglobin 30 pg (27-31); Mean Corpuscular Volume 89 fL (80-97); Mean Platelet Volume 6.8 fL (7.4-10.4); Platelet Count 884 10^3/ul (150-450); Red Blood Count 3.42 10^6/ul (4.00-5.40); Red Cell Distribution Width 14 % (10.5-15); White Blood Count 13.9 10^3/ul (3.5-10.8)
[2018-12-01 05:50] LABS: ABS Basophils 0.1 10^3/ul (0-0.2); ABS Eosinophils 0.3 10^3/ul (0-0.6); ABS Lymphocytes 2.8 10^3/ul (1.0-4.8); ABS Neutrophils 9.7 10^3/ul (1.5-7.7); ABS Nucleated RBC 0 10^3/ul; Eosinophil % 2.5 %; Lymphocyte % 20.2 %; Nucleated Red Blood Cells % 0
[2018-12-01] MEDS: Heparin VIAL(*) 5000 UNITS/ML VIAL (FIVE THOUSAND) SUBCUT SCH ×2 (06:35→14:41)
[2018-12-01] MEDS: ZOSYN 3.375 GM Q8H per EXTENDED INFUSION IVPB SCH ×2 (06:39)
[2018-12-01] MEDS: traMADol TAB* 50 MG PO PRN ×2 (06:50→13:34)
--- NOTE | 2018-12-01 11:00 | PN ---
Progress Note - Progress Note Date of Service: 12/01/18 Note: Surgery Progress: S: No c/o re: pain, except at pkg change. Yifan diet well. Ambulating. Looking forward to going home today. Daughter came in last night to learn pkg change. O: Vital Signs - 8 hr 12/01/18 12/01/18 12/01/18 03:24 06:50 09:33 Temperature 98.3 F Pulse Rate 74 Respiratory 18 16 16 Rate Blood Pressure 123/60 (mmHg) O2 Sat by Pulse 98 Oximetry Abd: soft, nontender. Induration around wound as expected. Packing removed; some light green drainage on dsg; dimensions as per 11/30 Labs: Laboratory Tests 12/01/18 05:14 WBC 13.9 H Hgb 10.3 L Plt Count 884 H D A: s/p drainage of abd wall abscess, likely diverticular in origin, improved P: cont wound care (BID pkg changes) and abx per hosp/ID; office f/u / w/ Dr. Braswell
--- NOTE | 2018-12-01 12:19 | PN ---
Progress Note - Progress Note Date of Service: 12/01/18 SOAP: Subjective: [Pt is anxious and awaiting to be discharged today. She states that her pain is still present but is very mild and can be managed with 300 mg of ibuprofen every 6 hours. She reports having a bowel movement this morning after being constipated for 3 days. This morning her packing was changed and her daughters ( one of whom she lives with) were educated by nursing staff on how to change her packing properly. She denies fever, chills, chest pain, SOB, abdominal pain or trouble with urination.] Objective: [ Vital Signs Temp 97.6 F 12/01/18 11:15 Pulse 78 12/01/18 11:15 Resp 16 12/01/18 11:15 BP 150/74 12/01/18 11:15 Pulse Ox 99 12/01/18 11:15 Intake & Output 11/30/18 12/01/18 12/01/18 18:59 06:59 18:59 Intake Total 940 1125 Output Total 1500 2600 600 Balance -560 -1475 -600 Intake: IV Fluids 130 125 ABX - ZOSYN 110 105 NS (0.9%) 20 20 Oral 810 1000 Output: Urine 1500 2600 600 General: Pt is anxious and excited to be discharged soon. Pt has packed her belongings in her room and is dressed. Heart: S1,S2. RRR. No M/R/G Lungs: CLA throughout Abdomen: nontender and nondistended. Bowel sounds present with auscultation. Left groin has significantly less erythema. Induration has decreased around wound at left groin. Packing is in place. No signs of infection or copious drainage are noted. Ext: No signs of LE edema.] Assessment: [58 y/o female s/p abdominal wall abscess drainage, likely diverticular in origin.] Plan: [-Continue ibuprofen as needed for pain -discharge today and continue abx per hospitalist -continue packing changes BID -follow up appointment with Dr. Braswell on 12/05/18]
--- NOTE | 2018-12-01 12:55 | DCNOTE ---
Subjective Date of Service: 12/01/18 Interval History: Pt reports she is feeling good and wants to go home. She reports her pain is controlled. She denies any fever.chills. Reports her wound site feels and looks much better Per nursing staff daughter have been educated how to change dressing and feel comfortable with daily dressing changes; also is being set up with VNS Discharge instructions were reviewed with patient and she states understanding Objective Active Medications: Acetaminophen (Tylenol Tab*) 650 mg PO Q4H PRN PRN Reason: FEVER/PAIN Last Admin: 11/29/18 11:17 Dose: 650 mg Famotidine (Pepcid Tab*) 20 mg PO BID PRN PRN Reason: DYSPEPSIA Last Admin: 12/01/18 04:10 Dose: 20 mg Heparin Sodium (Porcine) (Heparin Vial(*)) 5,000 units SUBCUT Q8HR [facility] Last Admin: 12/01/18 06:35 Dose: 5,000 units Piperacillin Sod/Tazobactam (Sod 3.375 gm/ Sodium Chloride) 100 mls @ 25 mls/ hr IVPB Q8H [facility] Last Admin: 12/01/18 06:39 Dose: 25 mls/hr Ibuprofen (Motrin Tab*) 300 mg PO Q6H PRN PRN Reason: PAIN Last Admin: 12/01/18 09:45 Dose: 300 mg Ondansetron HCl (Zofran Inj*) 4 mg IV Q8H PRN PRN Reason: NAUSEA Last Admin: 11/29/18 09:47 Dose: 4 mg Pharmacy Consult (Zosyn Per Pharmacy*) 1 note FOLLOW UP .ZOSYN PER PHARMACY [facility] Tramadol HCl (Ultram*) 25 mg PO Q6H PRN PRN Reason: PAIN Last Admin: 12/01/18 06:50 Dose: 25 mg Vital Signs - 8 hr 12/01/18 12/01/18 12/01/18 06:50 07:41 09:33 Temperature 98.5 F Pulse Rate 64 Respiratory 16 16 16 Rate Blood Pressure 129/65 (mmHg) O2 Sat by Pulse 97 Oximetry 12/01/18 11:15 Temperature 97.6 F Pulse Rate 78 Respiratory 16 Rate Blood Pressure 150/74 (mmHg) O2 Sat by Pulse 99 Oximetry Oxygen Devices in Use Now: None Appearance: 58 yo female A+O x3 in NAD Eyes: No Scleral Icterus, PERRLA Ears/Nose/Mouth/Throat: Mucous Membranes Moist Neck: NL Appearance and Movements; NL JVP Respiratory: Symmetrical Chest Expansion and Respiratory Effort, Clear to Auscultation Cardiovascular: NL Sounds; No Murmurs; No JVD, RRR, No Edema Abdominal: - - obese, sift, nondistended. LLQ has packed wound, CD+I, no noted drainage or foul odor Extremities: No Edema, No Clubbing, Cyanosis Skin: No Rash or Ulcers, No Nodules or Sclerosis Neurological: Alert and Oriented x 3, NL Sensation, NL Gait, NL Muscle Strength and Tone Lines/Tubes/Other Access: Clean, Dry and Intact Peripheral IV Nutrition: Taking PO's Result Diagrams: 12/01/18 05:14 11/30/18 05:54 Microbiology and Other Data: Microbiology 11/22/18 19:45 Gram Stain - Final Body Fluid - Abdominal Blood Cx 11/23: Pending UA: Ordered Diagnostic Imagin11/22/18: CT Abdomen and Pelvis: A fluid collection in the L inguinal region 13cm x 6.2cm x 6 cm Assess/Plan/Problems-Billing Ms Pacheco is a 58 yo F with no significant PMHx who presented with 10 days of L inguinal pain and found to have 13cm x 6 cm x 6cm abdominal wall collection - Patient Problems (1) Abdominal wall abscess Comment: Repeat CT 11/26/18 showed minimal residual collection. The abscess opened up and started draining on 11/28/18, now with packing BID, pigtail removed 11/29/18. Pt and daughters have been taught how to pack the wound She is improving clinically . Plan is to d/c home, VNS, f/u with wound care and surgical assiciates. Plan for daily wound dressings Plan is for moxifloxacin 400 mg daily x 2 weeks at home once we can arrange insurance. Pt would like to have [facility] pharmacy to fill meds (2) Thrombocytosis Comment: - thought to be reactive; repeat labs next week (3) Anemia Comment: normocytic and has dropped since admission likely related to drain and repeat procedures iron low, ferritin high, b12 high, likely inflammation. no indication for iron repletion. (4) Cellulitis Comment: while on zosyn likely related to skin injury before wound opened up, now improved, wound with packing. (5) Hypokalemia Comment: replaced (6) SIRS (systemic inflammatory response syndrome) Comment: Resolved (7) DVT prophylaxis Comment: SQ heparin (8) Full code status Status and Disposition: Inpatient. plan for DC home today
[2018-12-01 15:06] VITALS: BP 150/74
--- NOTE | 2018-12-01 20:54 | DS ---
CC: Dr. Jamey Barrow * DISCHARGE SUMMARY: DATE OF ADMISSION: 11/22/18 DATE OF DISCHARGE: 12/01/18 PROVIDER: Glory Glasgow NP ATTENDING PHYSICIAN: Dr. Paniagua * (report dictated by Glory Glasgow NP). PRIMARY CARE PROVIDER: Dr. Jamey Barrow. CONSULTING SURGEON: Dr. Zohra Braswell and surgical team. DISCHARGE DIAGNOSES: 1. Abdominal wall abscess, status post drainage, likely diverticular in origin , status post pigtail drain, now with open wound and packing. 2. Thrombocytosis. 3. Electrolyte abnormalities. HISTORY OF PRESENT ILLNESS AND HOSPITAL COURSE: Please see history and physical by TOM Odonnell, surgical team for full admission details, but in summary, this is a 58-year-old female, generally healthy, who reported on 09/19 that she was slouched in her recliner when she started to cough and lifted her feet and abdomen at the same time and she felt a sharp sudden pain in her left lower abdomen that lasted for the rest of the day, reporting the next morning she awoke pain- free. She reports later that day, she was picking up some heavy propane tanks and again felt a sudden sharp pain in the same area. She reported minimal relief from Advil, Aleve, or oxycodone. She was seen by her PCP 4 days prior to being admitted and was placed on Flexeril without relief. She reported decreased oral intake, but denied nausea and vomiting and reported bowel movements to be less than in the past few days. She also reported low-grade fever intermittently throughout the onset of the present illness, but had increased the night prior to being evaluated in the emergency department and reporting a temperature as high as 102. She reported continued left lower abdominal pain that was constant and aggravated by movement , sneezing, coughing, or bending. She presented to urgent care initially, in which she underwent an ultrasound and showed a heterogeneous echogenic and avascular collection measuring 7.8 x 5.3 x 6.1. There was also apparent peristalsis within the mass and recommendation was made for a CT scan with oral contrast. She underwent the abdominal pelvis contrast after she was transferred to the emergency department, which showed "a fluid collection in the left inguinal region measuring 12.8 x 6.3 x 5.3 cm consistent with an abscess without evidence of a hernia." She was admitted by the surgical team with a hospitalist consult, in which now the hospitalists are the attending providers. Surgical team has followed all along. The patient was seen by Dr. Zohra Braswell from the surgical team and there was questionable communication with the sigmoid colon and a repeat CT pelvis scan was done with rectal contrast that did not show any extravasation of contrast or any clear communication with superficial abdominal wall abscess cavity. Given the location of the abscess cavity in the fold of her lower abdominal wall , a percutaneous pigtail IR drain was placed. On 11/22/18, the patient had an ultrasound-guided placement of a 10-Sami pigtail drain catheter into the left lower quadrant subcutaneous abscess. Gram negative on stain. She was also noted to have notable leukocytosis of 24, thrombocytosis of 600. She was initially on Flagyl on admission and was brought onto Zosyn given persistent febrile day 2. The Gram stain grew E. coli, Bacteroides fragilis, and Parvimonas micra. Negative blood and urine cultures. She was seen in consultation by infectious disease physician, Dr. Nam. He agreed with continuing Zosyn at that time. It should be noted that the initial drain was placed by Dr. Reynoso on 11/22/18. It was repositioned on 11/24/18 and had considerable output since the reposition with improvement in redness, pain, and swelling in the left groin. She slowly improved. The patient's wound on the abdominal wall in the left lower quadrant opened up and started draining purulent discharge and Dr. Zohra Braswell packed it on 11/28/18. The pigtail drain was removed and the patient has received daily packing since. The area in the left lower quad, which is slightly under the patient's pannus, has greatly improved over the last couple of days with less erythema and drainage. Due to the placement of the abscess, it is difficult for the patient to pack due to her pannus. The patient's daughters have been trained to take care of the wound and repack the dressing as well as the patient will be sent home with VNS. Recommendation is for the patient to go home on 2 weeks of moxifloxacin 400 mg p.o. daily for another 14 days. Her pain is fairly well controlled with taking 300 mg ibuprofen q.6 hours p.r.n. and tramadol p.r.n. The patient's leukocytosis, which picked at 25.8, has trended down and today is noted to be 13. She has remained afebrile since 11/26/18. She was noted to have a significant thrombocytosis, thought to be reactive secondary to the infection. CRP initially was 299.60 and this trended down, last checked on with a result of 70. She was noted to have normocytic anemia, likely related to drain and repeat procedures. Her iron is low, ferritin high, B12 is high, likely inflammation. No indication for iron replacement at this time. Follow up with PCP. DISCHARGE MEDICATIONS: 1. Flexeril 5 mg p.o. t.i.d. 2. Tramadol 25 mg p.o. q.6 hours p.r.n. 3. Moxifloxacin 400 mg p.o. daily x14 days. 4. Ibuprofen 300 mg p.o. q.6 hours p.r.n. DISCHARGE PLAN: 1. Follow up with Dr. Jamey Barrow in 4 to 7 days. 2. Follow up with Dr. [facility]ohra [facility] on 12/05/18 at 8: 30 a.m. 3. [facility] 12[facility]18 at 8 a.m. 4. The patient has been set up with visiting nurse services. 5. Daily dressing changes. Again, the patient's daughters have been educated and instructed how to change the dressings and feel comfortable with this. As well, she will be followed by VNS. 6. Followup blood work on 12/06/18 with a BMP and a CBC. TIME SPENT: Approximately 60 minutes were spent on this dictation. This case was discussed with attending physician, Dr. Paniagua, who agrees with the plan of care. GLORY GLASGOW, COMPUTER ART INSTRUCTOR [id number]/[facility] #: [id number] A[place]ER
== END 2018-12-01 14:10 | disposition home or self-care (01) | DRG 383 ==
LOC: ED 13:52 → SSU 21:00
PROVIDERS: ADMIT Internal Medicine; ATTEND Internal Medicine
PROC: 0W9F30Z Drainage of Abdominal Wall with Drainage Device, Percutaneous Approach (ICD-10-PCS; principal; 2018-11-22)
PROC: 0W2FX0Z Change Drainage Device in Abdominal Wall, External Approach (ICD-10-PCS; 2018-11-24)
DX: L02.211 Cutaneous abscess of abdominal wall (principal); A41.9 Sepsis, unspecified organism; K57.20 Diverticulitis of large intestine with perforation and abscess without bleeding; E87.6 Hypokalemia; D69.6 Thrombocytopenia, unspecified; R19.7 Diarrhea, unspecified; B96.20 Unspecified Escherichia coli [E. coli] as the cause of diseases classified elsewhere; L03.311 Cellulitis of abdominal wall; D64.9 Anemia, unspecified; F17.210 Nicotine dependence, cigarettes, uncomplicated; Z88.1 Allergy status to other antibiotic agents; Z82.49 Family history of ischemic heart disease and other diseases of the circulatory system; Z80.0 Family history of malignant neoplasm of digestive organs
CPT/HCPCS: 36415; 49406; 72192; 72193; 74177; 75989; 80048; 80053; 81003; 81015; 82607; 82728; 83540; 83605; 83690; 85025; 86140; 87040; 87070; 87076; 87077; 87086; 87185; 87186; 87205; 87493; 88112; 99284; A9270-GY; C1729; C1769; J0744; J1644; J1885; J2250; J2270; J2405; J2543; J2704; J3010; J3370; J3490; Q9967